=== PATIENT | male | born 1945 | race Caucasian/White ===

== ENCOUNTER 2018-01-10 13:43 | Day surgery (SDC) | payer OTHER ==
[2018-01-10 15:04] VITALS: BP 150/100
[2018-01-10] MEDS ORDERED: LACTATED RINGERS 1,000 ML IV ONE (15:20)
--- NOTE | 2018-01-10 15:50 | ANESTHESIA ---
Pre-Anesthesia VS, & Labs - Diagnosis history of polyps - Procedure colonoscopy Vital Signs: Temp Pulse Resp BP Pulse Ox 36.8 C 61 18 150/100 H 97 01/10/18 15:02 01/10/18 15:02 01/10/18 15:02 01/10/18 15:02 01/10/18 15:02 Height 5 ft 7 in Weight (kg) 87 kg - NPO >8 hours - Lab Results Lab results reviewed: Yes Home Medications and Allergies Home Medications: Ambulatory Orders Medication Instructions Recorded Confirmed Acyclovir 400 mg PO PRN 01/10/18 Alfuzosin HCl [Alfuzosin HCl ER] 10 mg PO 01/10/18 Atorvastatin Calcium 40 mg PO 01/10/18 Finasteride 5 mg PO 01/10/18 Ketotifen Fumarate 5 ml OP 01/10/18 Acyclovir 400 mg PO PRN 01/10/18 Alfuzosin HCl [Alfuzosin HCl ER] 10 mg PO 01/10/18 Atorvastatin Calcium 40 mg PO 01/10/18 Finasteride 5 mg PO 01/10/18 Ketotifen Fumarate 5 ml OP 01/10/18 Allergies/Adverse Reactions: Allergies Allergy/AdvReac Type Severity Reaction Status Date / Time No Known Drug Allergies Allergy Verified 10/01/12 01:58 Anes History & Medical History - Anesthetic History Anesthesia Complications: reports: No previous complications Family history of Anesthesia Complications: Denies Family history of Malignant Hyperthermia: Denies - Medical History Cardiovascular: reports: Hypertension, Atrial fibrillation Pulmonary: reports: None Gastrointestinal: reports: None Urinary: reports: Benign prostate hypertrophy, Retention Musculoskeletal: reports: None Endocrine/Autoimmune: reports: Type 2 diabetes, Other (leukemia) Skin: reports: None Smoking Status: Never smoker - Surgical History General: Colonoscopy Exam General: Alert, Oriented x3, Cooperative, No acute distress
== END 2018-01-10 13:44 | disposition home or self-care (01) ==
LOC: SDS 13:43
PROVIDERS: ATTEND Internal Medicine
DX: Z86.010 Personal history of colon polyps (principal); Z53.09 Procedure and treatment not carried out because of other contraindication

== ENCOUNTER 2021-03-23 04:12 | Outpatient (CLI) | payer OTHER | END 2021-03-23 04:13 | disposition critical access hospital (66) | LOC: EMS 04:12 | DX: R50.9 Fever, unspecified (principal); R53.1 Weakness; M79.89 Other specified soft tissue disorders | CPT/HCPCS: A0425; A0427 ==

== ENCOUNTER 2021-03-23 04:47 | Emergency (ER) | payer OTHER ==
[2021-03-23] MEDS ORDERED: ACETAMINOPHEN 325 MG TABLET PO STA (05:03)
[2021-03-23] MEDS ORDERED: SODIUM CHLORIDE 0.9% 1,000 ML IV STA ×2 (05:04→07:12)
[2021-03-23 05:13] LABS: BASOPHILS # (AUTO) 0.1 10^3/uL (0.0-0.1); BASOPHILS % (AUTO) 0.7 %; EOSINOPHILS # (AUTO) 0.1 10^3/uL (0.0-0.7); EOSINOPHILS % (AUTO) 0.9 %; HCT - HEMATOCRIT 42.4 % (42.0-52.0); HGB - HEMOGLOBIN 13.7 g/dL (14.0-18.0); LYMPHOCYTES # (AUTO) 1.1 10^3/uL (1.5-3.5); LYMPHOCYTES % (AUTO) 13.1 %; MEAN CORPUSCULAR HGB CONC 32.3 g/dL (32.0-36.0); MEAN CORPUSCULAR VOLUME 92.8 fL (80.0-94.0); MEAN PLATELET VOLUME 11.9 fL (7.4-11.4); MONOCYTES # (AUTO) 0.7 10^3/uL (0.0-1.0); MONOCYTES % (AUTO) 8.3 %; NEUTROPHILS # (AUTO) 6.6 10^3/uL (1.5-6.6); NEUTROPHILS % (AUTO) 75.7 %; PLT - PLATELET COUNT 76 10^3/uL (130-450); RED BLOOD COUNT 4.57 10^6/uL (4.70-6.10); RED CELL DISTRIBUTION WIDTH 13.6 % (12.0-15.0); WHITE BLOOD COUNT 8.7 x10^3/uL (4.8-10.8)
[2021-03-23 05:20] LABS: ALBUMIN 3.8 g/dL (3.2-5.5); ALBUMIN/GLOBULIN RATIO 1.5 (1.0-2.2); BILIRUBIN,TOTAL 1.3 mg/dL (0.2-1.0); CALCIUM 8.5 mg/dL (8.5-10.3); CREATININE 1.2 mg/dL (0.6-1.2); POTASSIUM 3.4 mmol/L (3.5-5.0); TOTAL PROTEIN 6.4 g/dL (6.7-8.2)
[2021-03-23] MEDS ORDERED: IBUPROFEN 800 MG TABLET PO STA (05:21)
--- NOTE | 2021-03-23 05:24 | ED Physician Documentation ---
History of Present Illness - Stated complaint Stated Complaint: LEG SWELLING/FEVER - Chief complaint Chief Complaint: Fever - History obtained from History obtained from: Patient, EMS - Additonal information Additional information: Patient is brought to the emergency department by EMS for chief complaint of fever, lower extremity weakness, and general malaise for the last couple of days. The patient has a history of leukemia and has been on an oral agent since 2015 for this. He is followed at [facility], where his oncologist is. He states that he has not had any other specific symptoms. No cough or shortness of breath. No chest pain. No abdominal pain, nausea, or diarrhea. No rash. The patient has a history of a DVT back in 2015 on the left side but states that his right Lower leg has been somewhat red and painful. Both legs are edematous and have been enlarged fairly symmetrically. Medics report that daughter reported the patient is confused. No other complaints at this time. Review of Systems Ten Systems: 10 systems reviewed and negative Constitutional: reports: Fever, Fatigue Eyes: reports: Reviewed and negative Ears: reports: Reviewed and negative Nose: reports: Reviewed and negative. denies: Rhinorrhea / runny nose Throat: reports: Reviewed and negative Cardiac: reports: Reviewed and negative Respiratory: reports: Reviewed and negative. denies: Cough GI: reports: Reviewed and negative : reports: Reviewed and negative Skin: reports: Other (Erythema right leg) Musculoskeletal: reports: Extremity pain, Extremity swelling Neurologic: reports: Reviewed and negative Psychiatric: reports: Reviewed and negative Endocrine: reports: Reviewed and negative Immunocompromised: reports: Reviewed and negative PD PAST MEDICAL HISTORY - Past Medical History Past Medical History: Yes Cardiovascular: Hypertension, Atrial fibrillation Respiratory: None Endocrine/Autoimmune: Type 2 diabetes GI: None : Benign prostate hypertrophy, Retention HEENT: None Psych: None Musculoskeletal: None Derm: None Other Past Medical History: Leukemia - Past Surgical History Past Surgical History: Yes General: Colonoscopy - Present Medications Home Medications: Ambulatory Orders Medication Instructions Recorded Confirmed Acyclovir 400 mg PO PRN 01/10/18 Alfuzosin HCl [Alfuzosin HCl ER] 10 mg PO 01/10/18 Atorvastatin Calcium 40 mg PO 01/10/18 Finasteride 5 mg PO 01/10/18 Ketotifen Fumarate 5 ml OP 01/10/18 - Allergies Allergies/Adverse Reactions: Allergies Allergy/AdvReac Type Severity Reaction Status Date / Time No Known Drug Allergies Allergy Verified 03/23/21 05:02 - Social History Does the pt smoke?: No Smoking Status: Never smoker Does the pt drink ETOH?: No Does the pt have substance abuse?: No - Immunizations Immunizations are current?: Yes - POLST Patient has POLST: No PD ED PE NORMAL - Vitals Vital signs reviewed: Yes - General General: Alert and oriented X 3, No acute distress, Well developed/nourished - HEENT HEENT: Atraumatic, PERRL, EOMI, Moist mucous membranes - Neck Neck: Supple, no meningeal sign - Cardiac Cardiac: RRR, No murmur, Strong equal pulses - Respiratory Respiratory: No respiratory distress, Clear bilaterally - Abdomen Abdomen: Soft, Non tender, Non distended - Derm Derm: Warm and dry, No rash, Other (Erythema along the medial aspect of the right lower leg at with associated superficial tenderness to palpation) - Extremities Extremities: No deformity, Other (SEBASTIAN bilateral lower extremities, symmetrical. Mild calf tenderness bilaterally chelle did) - Neuro Neuro: Other (The patient is alert and answers questions appropriately. No focal weakness, but he is not able to hold himself up in the sitting position for very long during the lung exam before he begins to slowly slump backwards.) - Psych Psych: Normal mood, Normal affect Results - Vitals Vitals: Vital Signs - 24 hr 03/23/21 03/23/21 03/23/21 09:30 10:00 10:30 Heart Rate 76 74 75 Respiratory 18 16 14 Rate Blood Pressure 101/50 L 90/55 L 99/60 O2 Saturation 99 95 96 03/23/21 11:00 Heart Rate 76 Respiratory 16 Rate Blood Pressure 95/62 O2 Saturation 98 Oxygen O2 Source Nasal cannula Oxygen Flow Rate 3 - Labs Labs: Microbiology 03/23/21 07:10 Blood Culture - Preliminary Blood - Left Hand NO GROWTH AFTER 1 DAY 03/23/21 04:54 Blood Culture - Preliminary Blood NO GROWTH AFTER 1 DAY Laboratory Tests 03/23/21 03/23/21 03/23/21 04:54 04:54 04:54 WBC 8.7 RBC 4.57 L Hgb 13.7 L Hct 42.4 MCV 92.8 MCH 30.0 MCHC 32.3 RDW 13.6 Plt Count 76 L MPV 11.9 H Neut # (Auto) 6.6 Lymph # (Auto) 1.1 L [place] # (Auto) 0.7 Eos # (Auto) 0.1 Baso # (Auto) 0.1 Absolute Nucleated RBC 0.00 Nucleated RBC % 0.0 Sodium 135 Potassium 3.4 L Chloride 98 L Carbon Dioxide 26 Anion Gap 11.0 BUN 14 Creatinine 1.2 Estimated GFR (MDRD) 59 L Glucose 148 H Lactic Acid 1.2 Calcium 8.5 Total Bilirubin 1.3 H AST 17 ALT 13 Alkaline Phosphatase 58 Total Protein 6.4 L Albumin 3.8 Globulin 2.6 Albumin/Globulin Ratio 1.5 Lipase 56 H Urine Color Urine Clarity Urine pH Ur Specific [place] Urine Protein Urine Glucose (UA) Urine Ketones Urine Occult Blood Urine Nitrite Urine Bilirubin Urine Urobilinogen Ur Leukocyte Esterase Urine RBC Urine WBC Ur Squamous Epith Cells Urine Bacteria Ur Microscopic Review Urine Culture Comments Nasal Adenovirus (PCR) Nasal B. parapertussis DNA (PCR) Nasal Coronavir 229E PCR Nasal Coronavir HKU1 PCR Nasal Coronavir NL63 PCR Nasal Coronavir OC43 PCR Nasal Enterovir/Rhinovir PCR Nasal Influenza B PCR Nasal Influenza A PCR Nasal Parainfluen 1 PCR Nasal Parainfluen 2 PCR Nasal Parainfluen 3 PCR Nasal Parainfluen 4 PCR Nasal RSV (PCR) Nasal B.pertussis DNA PCR Nasal C.pneumoniae (PCR) Gary Human Metapneumo PCR Nasal M.pneumoniae (PCR) Nasal SARS-CoV-2 (PCR) 03/23/21 03/23/21 05:00 07:12 WBC RBC Hgb Hct MCV MCH MCHC RDW Plt Count MPV Neut # (Auto) Lymph # (Auto) [place] # (Auto) Eos # (Auto) Baso # (Auto) Absolute Nucleated RBC Nucleated RBC % Sodium Potassium Chloride Carbon Dioxide Anion Gap BUN Creatinine Estimated GFR (MDRD) Glucose Lactic Acid Calcium Total Bilirubin AST ALT Alkaline Phosphatase Total Protein Albumin Globulin Albumin/Globulin Ratio Lipase Urine Color YELLOW Urine Clarity CLEAR Urine pH 6.0 Ur Specific [place] 1.015 Urine Protein NEGATIVE Urine Glucose (UA) NEGATIVE Urine Ketones NEGATIVE Urine Occult Blood SMALL H Urine Nitrite NEGATIVE Urine Bilirubin NEGATIVE Urine Urobilinogen 0.2 (NORMAL) Ur Leukocyte Esterase NEGATIVE Urine RBC 0-5 Urine WBC 0-3 Ur Squamous Epith Cells NONE SEEN Urine Bacteria None Seen Ur Microscopic Review INDICATED Urine Culture Comments NOT INDICATED Nasal Adenovirus (PCR) NOT DETECTED Nasal B. parapertussis DNA (PCR) NOT DETECTED Nasal Coronavir 229E PCR NOT DETECTED Nasal Coronavir HKU1 PCR NOT DETECTED Nasal Coronavir NL63 PCR NOT DETECTED Nasal Coronavir OC43 PCR NOT DETECTED Nasal Enterovir/Rhinovir PCR NOT DETECTED Nasal Influenza B PCR NOT DETECTED Nasal Influenza A PCR NOT DETECTED Nasal Parainfluen 1 PCR NOT DETECTED Nasal Parainfluen 2 PCR NOT DETECTED Nasal Parainfluen 3 PCR NOT DETECTED Nasal Parainfluen 4 PCR NOT DETECTED Nasal RSV (PCR) NOT DETECTED Nasal B.pertussis DNA PCR NOT DETECTED Nasal C.pneumoniae (PCR) NOT DETECTED Gary Human Metapneumo PCR NOT DETECTED Nasal M.pneumoniae (PCR) NOT DETECTED Nasal SARS-CoV-2 (PCR) NOT DETECTED - Rads (name of study) US RLE Radiology: Final report received, EMP read indepedently, See rad report (No DVT) CXR Radiology: Final report received, EMP read indepedently, See rad report (No acute disease) PD MEDICAL DECISION MAKING - ED course Complexity details: reviewed results, re-evaluated patient, considered differential, d/w patient ED course: The patient had been quite febrile at home up to 102, but was found to be 100.3 here on my personal check of an oral temperature during my exam. He was mildly tachycardic in keeping with the fever. He was given IV fluids and Tylenol plus ibuprofen. He was worked up broadly with chest x-ray, lab work including blood cultures and lactic acid level, urinalysis, respiratory PCR, and ultrasound of the right lower extremity. Lactate and white blood cell count's were both normal. Urinalysis was pending at the time of dictation. Respiratory PCR and chest x-ray were negative. Ultrasound did not show DVT. Given the complaint of right leg weakness, even though on exam the weakness did not seem to be more than on the left side, I did go ahead and order a CT scan of the head. This is pending at this time, along with urinalysis. The patient is signed out to Dr. Tomas Conklin, pending these results and final disposition. Departure - Departure Disposition: 02 Transfer Acute Care Hosp Clinical Impression: Leg weakness, Intracranial hemorrhage, Subjective fever Condition: Stable Discharge Date/Time: 03/23/21 11:17
[2021-03-23 06:04] LABS: B. PARAPERTUSSIS- RESP PCR PAN NOT DETECTED; B. PERTUSSIS- RESP PCR PANEL NOT DETECTED; C. PNEUMONIAE- RESP PCR PANEL NOT DETECTED; CORONAVIRUS 229E-RESP PCR NOT DETECTED; CORONAVIRUS HKU1-RESP PCR NOT DETECTED; CORONAVIRUS NL63-RESP PCR NOT DETECTED; CORONAVIRUS OC43-RESP PCR NOT DETECTED; HUMAN METAPNEUMOVIRUS NOT DETECTED; INFLUENZA A- RESP PCR PANEL NOT DETECTED; INFLUENZA B - RESP PCR PANEL NOT DETECTED; M. PNEUMONIAE- RESP PCR PANEL NOT DETECTED; PARAINFLUENZA VIRUS 1 NOT DETECTED; PARAINFLUENZA VIRUS 2 NOT DETECTED; PARAINFLUENZA VIRUS 3 NOT DETECTED; PARAINFLUENZA VIRUS 4 NOT DETECTED; RHINOVIRUS/ENTEROVIRUS NOT DETECTED; RSV- RESP PCR PANEL NOT DETECTED; SARS-CoV-2 -RESP PCR PANEL NOT DETECTED
[2021-03-23] MEDS ORDERED: IOVERSOL 320 100 ML VIAL IVP ONE ×2 (07:21→07:50)
[2021-03-23 07:22] LABS: BILIRUBIN,URINE NEGATIVE (NEGATIVE); GLUCOSE, URINE (UA) NEGATIVE (NEGATIVE); KETONES,URINE (UA) NEGATIVE (NEGATIVE); LEUKOCYTE ESTERASE, URINE NEGATIVE (NEGATIVE); NITRITE,URINE NEGATIVE (NEGATIVE); OCCULT BLOOD,URINE SMALL (NEGATIVE); PROTEIN,URINE NEGATIVE (NEGATIVE); UROBILINOGEN,URINE 0.2 (NORMAL) E.U./dL (NORMAL)
[2021-03-23 07:40] LABS: CLARITY,URINE CLEAR (CLEAR)
[2021-03-23 07:42] LABS: BACTERIA,URINE None Seen /HPF (None Seen); RBC,URINE 0-5 /HPF (0-5); SQUAMOUS EPITHELIAL CELL,UR NONE SEEN (<= Few); WBC,URINE 0-3 /HPF (0-3)
--- NOTE | 2021-03-23 07:47 | Ultrasound Report ---
PROCEDURE: Duplex Ext Veins Right INDICATIONS: fever, swelling RLE, cancer TECHNIQUE: Real-time imaging, as well as color and pulse Doppler interrogation, were performed of the lower extr emity deep veins from the inguinal ligament to the popliteal fossa. COMPARISON: None. FINDINGS: The deep veins are normally compressible, and free of intraluminal thrombus. Color and pu lse Doppler demonstrate normal phasic intraluminal flow. There is normal augmentation response to di stal compression maneuver. Diffuse nonspecific soft tissue edema noted in the right calf. IMPRESSION: No evidence of deep thrombosis involving the right lower extremity. Reviewed by: Nathalie Dias MD, PhD on 03/23/2021 7:46 AM PST Approved by: Nathalie Dias MD, PhD on 03/23/2021 7:46 AM PST Station ID: [id number]
--- NOTE | 2021-03-23 08:15 | CT Report ---
PROCEDURE: HEAD WO INDICATIONS: R leg weakness TECHNIQUE: Noncontrast 4.5 mm thick angled axial sections acquired from the foramen magnum to the vertex. For r adiation dose reduction, the following was used: automated exposure control, adjustment of mA and/or kV according to patient size. COMPARISON: None. FINDINGS: Image quality: Excellent. CSF spaces: Basal cisterns are patent. No extra-axial fluid collections. There is mild cerebral vol ume loss. Prominence of the ventricles and sulci. Brain: There is an indistinct region of intraparenchymal hemorrhage within the left colby radiata m easuring up to approximately 0.7 cm in dimension. No associated mass effect. No midline shift. There is a focal hypodensity within the right colby radiata suggestive of a small lacunar infarct of inde terminate acuity. There is also an indistinct hypodensity within the left caudate head compatible wit h a prior lacunar infarct of indeterminate acuity. Elsewhere, there are indistinct areas of subcortic al and periventricular white matter hypodensity consistent with mild chronic white matter small vesse l ischemic changes. Dum[place]-white matter interface otherwise appears preserved. Skull and face: Calvarium and visualized facial bones are intact, without suspicious lesions. Sinuses: Visualized sinuses and mastoids are clear. IMPRESSION: 1. Small indistinct intraparenchymal hemorrhage within the left colby radiata. 2. Small focal hypodensities within the left caudate head and right colby radiata compatible with sm all lacunar infarcts of indeterminate acuity. 3. Mild chronic white matter small vessel ischemic changes and cerebral volume loss. Concordant with preliminary report from [facility] services discussed with Dr. Conklin on at 7:09 AM. Reviewed by: Corey Can MD on 03/23/2021 8:13 AM PST Approved by: Corey Can MD on 03/23/2021 8:13 AM PST Station ID: [id number]
--- NOTE | 2021-03-23 08:23 | CT Report ---
PROCEDURE: ANGIO HEAD W/WO INDICATIONS: L sided facial droop CONTRAST: IV CONTRAST: Optiray 320 ml: 80 PO CONTRAST: *NO PO CONTRAST TECHNIQUE: After the administration of intravenous contrast, 1 mm thick sections acquired through the [place]. Postcontrast 4.5 mm thick sections then re-acquired from the foramen magnum to the vertex. 3-dimensional kjrgyec-[id number]-invmpanqio (MIP) and/or volume rendering reformats were acquired of t he central intracranial vasculature. For radiation dose reduction, the following was used: automate d exposure control, adjustment of mA and/or kV according to patient size. COMPARISON: Head CT 03/23/2021 FINDINGS: Image quality: There is mild motion and beam hardening artifact. Anterior circulation: Visualized segments of the intracranial internal carotid arteries are normal in size and appear patent. The paired anterior cerebral arteries appear patent. The middle cerebral ar teries appear patent bilaterally. The anterior communicating artery is patent. No high-grade stenosis , occlusion, or discrete filling defects. No cerebral aneurysms identified. Posterior circulation: Visualized portions of the vertebral arteries demonstrate normal caliber, and join to form a normal appearing basilar artery. Flow within the posterior cerebral arteries is norm al and symmetric. No aneurysms are seen. CSF spaces: There is mild cerebral volume loss with prominence of the ventricles and sulci. Basal cis terns are patent. No extra-axial fluid collections. Brain: There is an indistinct small frontal left periventricular intraparenchymal hematoma within th e left coronal radiata measuring up to approximately 0.7 cm. There is mild associated vasogenic edema . No midline shift. No definite associated underlying mass identified. No definite abnormal intracran ial enhancement. There are focal hypodensities in the right coronal radiata and left caudate head com patible with small lacunar infarct of indeterminate acuity. Indistinct subcortical and periventricula r white matter hypodensities are also demonstrated consistent with mild chronic small vessel ischemic changes. Skull and face: Calvarium and facial bones appear intact, without suspicious lesions. Sinuses: Visualized sinuses and mastoids are clear. IMPRESSION: 1. Small indistinct intraparenchymal hematoma within the left colby radiata. No definite underlying enhancing mass identified. The findings are suggestive of a hypertensive hemorrhage. 2. No high-grade stenosis or occlusion of the central intracranial arteries. No cerebral aneurysm mamadou ntified. 3. Mild chronic white matter small vessel ischemic changes and cerebral volume loss. 4. Focal hypodensities in the right colby radiata and left caudate head are suggestive of small acut e infarcts of indeterminate acuity. Reviewed by: Corey Can MD on 03/23/2021 8:22 AM PST Approved by: Corey Can MD on 03/23/2021 8:22 AM [facility] Station ID: [id number]
--- NOTE | 2021-03-23 08:35 | XRAY Report ---
PROCEDURE: Chest 1 View X-Ray INDICATIONS: chest pain TECHNIQUE: One view of the chest was acquired. COMPARISON: None. FINDINGS: Surgical changes and devices: None. Lungs and pleura: There are linear opacities in the lung bases, left greater than right, likely repr esenting atelectasis. Mild blunting of the left costophrenic angle is suggestive of a small left pleu ral effusion. The medial lung apices are partially obscured by patient's neck soft tissues. No defini te pneumothorax. Mediastinum: Mediastinal contours appear normal. Heart size is normal. Bones and chest wall: No suspicious bony lesions. Overlying soft tissues appear unremarkable. IMPRESSION: 1. Probable atelectasis in the lung bases with a possible small left pleural effusion. Reviewed by: Corey Can MD on 03/23/2021 8:34 AM PST Approved by: Corey Can MD on 03/23/2021 8:34 AM [facility] Station ID: [id number]
--- NOTE | 2021-03-23 08:45 | ED Physician Documentation ---
ED Addendum - Addendum Addendum: 03/23/21 08:43The patient remains awake and conversant on my initial exam. His initial CT of the head was showing a 1 cm intracranial hemorrhage in the region of the left internal capsule. Age-indeterminate lacunar infarct in the right lentiform nucleus. On my exam he has some drift of the right leg with lifting. General weakness of both legs for lifting and edema of both. Mild redness on the right lower leg compared to the left with some tenderness so consideration of some cellulitic changes. Neuro exam otherwise nonfocal. CTA of the head is ordered to look for underlying tumors or aneurysms or such. This comes back showing similar findings on the CT with the small local hemorrhage and other area of indeterminate age small infarction. No obvious aneurysms masses or tumors. At this point I presume he will need neurology or neurosurgical input regarding the findings. We will assess for other hospital capabilities for transfer. He is not on any blood thinners. 03/23/21 16:12 Contact was made with [facility] and I talked with Dr. Samy diez for neurology and then Dr. Andres neuro ICU. Review of the patient's presentation and CT findings was done. They did feel the patient should be transferred to them for observation to evaluate for repeat bleeding and neuro status. EMTALA forms were filled out and the patient was transported by ground EMS as he appeared stable with good neuro exam at this time. No obvious source of infection is found so unclear about the subjective feeling of chills nor the EMS report of fever on their initial exam. Afebrile here in no obvious source of infection. Disposition the patient is transferred to [facility] in stable condition. Diagnoses: 1. Acute right leg weakness 2. 1 cm intraparenchymal brain bleed 3. Reported fever
[2021-03-23 11:17] VITALS: BP 95/62
== END 2021-03-23 11:17 | disposition short-term general hospital (02) ==
LOC: EDUNIT# → ED 04:47
DX: I62.9 Nontraumatic intracranial hemorrhage, unspecified (principal); M62.81 Muscle weakness (generalized); R50.9 Fever, unspecified; R00.0 Tachycardia, unspecified; I48.91 Unspecified atrial fibrillation; I10 Essential (primary) hypertension; E11.9 Type 2 diabetes mellitus without complications; Z20.822 Contact with and (suspected) exposure to COVID-19; Z86.718 Personal history of other venous thrombosis and embolism
CPT/HCPCS: 0202U; 36415; 51702; 70450; 70496; 71045; 80053; 81001; 83605; 83690; 85025; 87040; 93971; 99285; A9270; Q9967; 81003; 87086

== ENCOUNTER 2021-03-23 11:16 | Outpatient (CLI) | payer OTHER | END 2021-03-23 11:17 | disposition short-term general hospital (02) | LOC: EMS 11:16 | PROVIDERS: ATTEND Emergency Medicine | DX: I62.9 Nontraumatic intracranial hemorrhage, unspecified (principal) | CPT/HCPCS: A0425; A0428 ==

== ENCOUNTER 2021-03-29 08:37 | Emergency (ER) | payer OTHER ==
[2021-03-29 09:00] VITALS: BP 141/79
--- NOTE | 2021-03-29 09:23 | ED Physician Documentation ---
History of Present Illness - Stated complaint Stated Complaint: CATH ISSUES - Chief complaint Chief Complaint: General - History obtained from History obtained from: Patient - Additonal information Additional information: Patient comes emergency department chief complaint of Saucedo catheter issues. He states that he was just admitted to the hospital at [facility] after being found to have a cerebral hemorrhage here. While he was in the hospital, he states he developed urinary retention, so Saucedo catheter was placed. Patient states that he was sent home on the Saucedo, but he feels that the tube was too short and it kept pulling. Patient was trying to adjust it yesterday when he accidentally pulled hard on it, and felt a "pop". States he had some moderate pain, was not able to void through the catheter and did not have any urine output overnight. He was quite uncomfortable this morning, and decided come to the emergency department, but on the way here, he began to have drainage from his catheter. He has now put out 800 cc of urine, but he has noticed it is blood-tinged. The patient states mainly, he just wants the catheter taken out, because this is happened to him many times before where he has had urinary retention, secondary to his prostatic hypertrophy, and has had to have a Saucedo catheter temporarily. Patient states he thinks he could urinate without the catheter, now that it has been in for a couple of days, and he would like to try without. No fevers or chills. No new weakness. No other complaints at this time. Review of Systems Ten Systems: 10 systems reviewed and negative Constitutional: reports: Reviewed and negative Eyes: reports: Reviewed and negative Ears: reports: Reviewed and negative Nose: reports: Reviewed and negative Throat: reports: Reviewed and negative Cardiac: reports: Reviewed and negative Respiratory: reports: Reviewed and negative GI: reports: Reviewed and negative : reports: Unable to Void, Hematuria, Saucedo Problem Skin: reports: Reviewed and negative Musculoskeletal: reports: Reviewed and negative Neurologic: reports: Reviewed and negative Psychiatric: reports: Reviewed and negative Endocrine: reports: Reviewed and negative Immunocompromised: reports: Reviewed and negative PD PAST MEDICAL HISTORY - Past Medical History Cardiovascular: Hypertension, Atrial fibrillation Respiratory: None Endocrine/Autoimmune: Type 2 diabetes GI: None : Benign prostate hypertrophy, Retention HEENT: None Psych: None Musculoskeletal: None Derm: None - Past Surgical History Past Surgical History: Yes General: Colonoscopy - Present Medications Home Medications: Ambulatory Orders Medication Instructions Recorded Confirmed Acyclovir 400 mg PO PRN 01/10/18 Alfuzosin HCl [Alfuzosin HCl ER] 10 mg PO 01/10/18 Atorvastatin Calcium 40 mg PO 01/10/18 Finasteride 5 mg PO 01/10/18 Ketotifen Fumarate 5 ml OP 01/10/18 - Allergies Allergies/Adverse Reactions: Allergies Allergy/AdvReac Type Severity Reaction Status Date / Time No Known Drug Allergies Allergy Verified 03/29/21 08:56 - Social History Does the pt smoke?: No Smoking Status: Never smoker Does the pt drink ETOH?: No Does the pt have substance abuse?: No - Immunizations Immunizations are current?: Yes - POLST Patient has POLST: No PD ED PE NORMAL - Vitals Vital signs reviewed: Yes - General General: Alert and oriented X 3, No acute distress, Well developed/nourished - HEENT HEENT: Atraumatic, PERRL, EOMI, Moist mucous membranes - Neck Neck: Supple, no meningeal sign - Respiratory Respiratory: No respiratory distress - Abdomen Abdomen: Soft, Non distended - Male Male : Other (Catheter in place with active drainage. Mildly blood-tinged urine, with 800 cc in Saucedo bag.) - Derm Derm: Warm and dry - Extremities Extremities: No deformity - Neuro Neuro: Alert and oriented X 3 - Psych Psych: Normal mood, Normal affect Results - Vitals Vitals: Vital Signs - 24 hr 03/29/21 08:48 Temperature 36.0 C L Heart Rate 76 Respiratory 16 Rate Blood Pressure 141/79 H O2 Saturation 99 Oxygen O2 Source Nasal cannula PD MEDICAL DECISION MAKING - ED course Complexity details: considered differential, d/w patient ED course: At the patient's request, the Saucedo was removed. I have discussed with the patient that he will have to see how it goes today and see if he is able to urinate on his own. If not, we can put the catheter back and if he returns to the emergency department, but if this ends up being the case, then the patient will need to follow-up with urology for evaluation before having it discontinued. Patient is otherwise doing well and stable for discharge home Departure - Departure Disposition: 01 Home, Self Care Clinical Impression: Saucedo catheter problem Qualifiers: Encounter type: initial encounter Qualified Code(s): T83.9XXA - Unspecified complication of genitourinary prosthetic device, implant and graft, initial encounter Condition: Stable Instructions: ED Retention Urinary Male Comments: At your request, the catheter has been removed today. As you have done before, you will need to find the best position to help yourself urinate and you should also try to urinate sooner rather than waiting till your bladder is very full, as this can sometimes increase your chances of urinary retention. If you cannot urinate by the end of the day, despite drinking plenty of fluids, then you will need to return to the emergency department and have the catheter replaced.
== END 2021-03-29 09:33 | disposition home or self-care (01) ==
LOC: ED 08:37
DX: T83.9XXA Unspecified complication of genitourinary prosthetic device, implant and graft, initial encounter (principal); R33.8 Other retention of urine; I10 Essential (primary) hypertension; I48.91 Unspecified atrial fibrillation; E11.9 Type 2 diabetes mellitus without complications; N40.1 Benign prostatic hyperplasia with lower urinary tract symptoms
CPT/HCPCS: 99281; 99282

== ENCOUNTER 2021-05-25 08:00 | Outpatient (CLI) | payer OTHER ==
--- NOTE | 2021-05-25 09:55 | XRAY Report ---
PROCEDURE: Tib/Fib RT INDICATIONS: RIGHT LEG PAIN TECHNIQUE: 2 views of the tibia and fibula were acquired. COMPARISON: None. FINDINGS: Bones: No fractures or dislocations. Osteoarthritic changes in right knee and the right ankle joints are seen. No suspicious bony lesions. Soft tissues: No suspicious soft tissue calcifications or masses. IMPRESSION: No right lower leg fracture or dislocation. Right ankle and right knee joint osteoarthritis. No suspi cious bony lesion. No gross soft tissue abnormality. Reviewed by: Dennis Glover MD on 05/25/2021 9:54 AM PST Approved by: Dennis Glover MD on 05/25/2021 9:54 AM PST Station ID: [id number]
== END 2021-05-25 23:59 | disposition home or self-care (01) ==
LOC: DI.S 08:00 → MERGE 09:05 → DI.S 23:59
PROVIDERS: ATTEND Physician Assistant
DX: L03.115 Cellulitis of right lower limb (principal); M19.071 Primary osteoarthritis, right ankle and foot; M17.11 Unilateral primary osteoarthritis, right knee

== ENCOUNTER 2021-06-29 11:17 | Outpatient (CLI) | payer OTHER ==
[2021-06-29 12:09] VITALS: BP 132/73
--- NOTE | 2021-06-29 12:09 | SLEEP CARE CONSULTATION ---
Information from patient questionnaire entered by America Henry MA. I have reviewed and concur with the information entered by America Henry MA. This document represents the service I personally performed and the decisions made by , Divya Delatorre ARNP. History of Present Illness Service Date and Time: 06/29/2021 1117 Reason for Visit: New patient (ONSET 04/2021, NO PRIORS,) Chief Complaint: reports: Unrefreshed sleep, Excessive daytime sleepiness, Fatig ue, Frequent awakenings at night Date of Onset: unknown Usual bedtime: 11 PM Time it takes to fall asleep: no time Snores at night: No Observed to quit breathing while asleep: No Sleeps alone due to snoring: No (single) Number of times waking at night: 1 Reasons for waking at night: reports: Bathroom Toss, Turn, or Twitch while sleeping: No Recalls having dreams: Yes Usually gets out of bed at: 0400 or earlier Feels refreshed in the morning: No Morning headache: No Sleepy or fatigued during the day: Yes (at times) Ever fallen asleep while driving: Yes Takes day naps: Yes Dreams during day naps: No Prior sleep studies: No Additional HPI information: I had the pleasure of seeing ASIA DACOSTA today regarding the possibility of him having a sleep disorder. His current complaints are excessive daytime sleepiness, fatigue, frequent night awakenings, and unrefreshed sleep. He states he can snore if he sleeps on his back but normally does not snore. He had a stroke in February 2021 and was told that his oxygen saturation would decrease while he slept when in the hospital. They did not say he snored or had any p auses in breathing. The patient tells me that he normally goes to bed around 10-11 pm, and it takes him approximately couple minutes to fall asleep. He has not been told that he snores loudly and irregularly at night. He has not been observed to stop breathing in his sleep. He can recall waking up on the average of 1 time during the night. Most of the time he wakes up because of needing the bathroom. He has not awakened for his own snoring, choking, and having to gasp for air. There is not a lot of tossing and turning in his sleep. Generally he can recall having dreams. He usually wakes up at 0530 and does not feel refreshed. He usually does not have a morning headache. During the day he complains of feeling sleepy and fatigued. He has fallen asleep while driving and has gone out of the tamie, no accident. He usually naps for about 60 minutes during the day. If he naps, upon falling asleep during the day he denies having vivid dreams. There is no somniloquy (sleep talking) or somnambulism (sleep walking). He has never experienced sleep paralysis, cataplexy, or symptoms of restless leg syndrome. He does have sore muscles and leg cramping. He reports having impaired concentration during the day. - Parasomnia Symptoms Ever been unable to move upon waking from sleep: No Walks in sleep: No Talks in sleep: No Ever acted out dreams in sleep: No Ever felt weak in the knees when startled or emotional: No Bothered by creepy, crawly, restless sensations in legs: Yes (sometimes has leg spasms) Problems with memory or concentration: Yes (some) Subjective Initial [place] Sleepiness Scale score: 12 (2021) Past Medical History Past Medical History: reports: Hypertension, Diabetes, Stroke (Feb 2021), Arrythmia (Atrial fibrillation), Other (Leukemia (on medication), a fib, high blood pressure, enlarged prostate) Social History The patient's occupation is a RETIRED. Patient is and lives in [place]. Have you smoked in the past 12 months: No Cigarettes per day (20/pack): 20 Years of smokin Quit date: 30 years ago Smoking Pack Years: 15.0 Alcohol use: No Caffeine use: Yes Caffeine amount and frequency: 2-6 cups every day Family History Family history of sleep disordered breathing: Yes Family Hx Sleep Apnea: Sibling: Sleep apnea - Treated Allergies and Home Medications Drug allergies reviewed: Yes (NKDA) Home medication list reviewed: Yes Allergy and home medication list: Allergies No Known Drug Allergies Allergy (Verified 05/25/21 10:07) Medications: Atorvastatin Acyclovir Ibrutinib - cancer med Metoprolol Succinate Metformin HCL Alfuzosin HCL Furosemide Finasteride Review of Systems Weight loss over past 5 years: 10 lbs Cardiovascular: reports: high blood pressure, leg or foot swelling Urinary: reports: frequency Ear/Nose/Throat: reports: sinus problems, nose bleeds, tonsillectomy Musculoskeletal: reports: neck pain (sometimes), back pain (sometimes), muscle pain or cramping (in morning), mobility problems (balance issues) Physical Exam Vital signs obtained and entered by: CHRIS MARQUEZ Blood Pressure: 132/73 (RIGHT, PULSE 88, RESP 16, ) Cuff size: wrist Heart Rate: 85 O2 Saturation: 96 (N95) Height: 5 ft 6 in Weight: 184 lb Weight change since last visit: PT THINKS HE LOST FEW LBS Body Mass Index: 29.7 BMI Classification: Overweight Neck circumference: 15.5 (INCHES) Mouth and throat: narrow oropharynx Soft palate: long Hard palate: normal Uvula: normal Uvula visualization: 25% Mallampati Class III Tongue: normal in size Tonsils: absent bilaterally Neck: normal w/o lymphadenopathy or thyromegaly Heart: irregular rhythm Lungs: clear bilaterally Impression and Plan 1. Suspected Obstructive Sleep Apnea-Hypopnea Syndrome, as suggested by a history of irregular snoring, unrefreshed sleep, cognitive impairment, and excessive daytime sleepiness. Narrow oropharynx and obesity are common predisposing factors for obstructive sleep apnea-hypopnea syndrome. I recommend proceeding to polysomnography to confirm the diagnosis and to assess severity. If the patient has significant sleep disordered breathing, a manual CPAP titration study will also be performed to find the optimal treatment pressure. I informed the patient of what the sleep studies involve and after some discussion, obtained agreement to proceed. The pathophysiology of obstructive sleep apnea-hypopnea syndrome was discussed with the patient and health risks of cardiovascular and cerebrovascular disease if not treated. Risks of drowsy driving discussed in detail and patient advised to avoid long distance driving and to chute puller at the first sign of drowsiness. Patient agreed to plan. * Schedule polysomnography * Avoid long distance driving or driving when feeling sleepy. * Avoid alcohol, sedative and muscle relaxant around bedtime. * Attempt to lose weight. * Review instructions provided by trained office staff on how to prepare for the sleep study. * Return for follow-up after sleep study completed. Counseling Topics: Weight loss health impact Visit Type: In Office Time Spent with Patient (minutes): 42 Provider Statement: I spent 100% of the Face to Face Visit with the patient with greater than 50% spent counseling the patient and coordination of care.
== END 2021-06-29 11:18 | disposition home or self-care (01) ==
LOC: SC 11:17
PROVIDERS: ATTEND Nurse Practitioner Family
DX: G47.10 Hypersomnia, unspecified (principal); G47.8 Other sleep disorders; R41.89 Other symptoms and signs involving cognitive functions and awareness; R06.83 Snoring
CPT/HCPCS: 99203; 99212

== ENCOUNTER 2021-07-18 19:30 | Outpatient (CLI) | payer OTHER | END 2021-07-18 19:31 | disposition home or self-care (01) | LOC: SC 19:30 | PROVIDERS: ATTEND Nurse Practitioner Family | DX: G47.33 Obstructive sleep apnea (adult) (pediatric) (principal); I48.91 Unspecified atrial fibrillation | CPT/HCPCS: 95810 ==

== ENCOUNTER 2021-08-05 08:27 | Outpatient (CLI) | payer OTHER ==
[2021-08-05 09:09] VITALS: BP 118/76
--- NOTE | 2021-08-05 09:09 | SLEEP CARE CONSULTATION ---
Information from patient questionnaire entered by America Henry MA. I have reviewed and concur with the information entered by America Henry MA. This document represents the service I personally performed and the decisions made by , Divya Delatorre ARNP. History of Present Illness Service Date and Time: 08/05/2021 0827 Initial [place] Sleepiness Scale score: 12 (2021) Current [place] Sleepiness Scale score: 12 (08/13) Additional HPI information: ASIA DACOSTA returns via video telehealth visit for follow up and results of the recently performed polysomnography. I explained the pathophysiology behind obstructive sleep apnea. We then spent quite a bit of time discussing different treatment options. For mild obstructive sleep apnea, surgery and oral appliance are alternatives to nasal CPAP therapy but in moderate or severe cases, nasal CPAP is the most effective and reliable treatment. Because apnea is primarily in supine position, then positional management therapy could be effective. Methods discussed such as positioning with pillows to prevent supine sleep. I reviewed the impact of weight changes on sleep apnea and strongly recommended losing weight. After some discussion, the patient opted to go with the nasal CPAP therapy. Nasal autoCPAP set at 4-15 cmH20 will be ordered with rationale explained. A manual titration study will be ordered if unable to find optimal pressure with office adjustments. I explained how CPAP machine works and what to expect when using the machine. Using CPAP every night in order to get used to it was emphasized. Patient advised to put CPAP mask on before getting into bed so as not to fall asleep without CPAP. To assist acclimation to CPAP use, it could also be used for a short time during day while reading or watching TV. The patient was instructed to call the CPAP supplier to discuss any mechanical problem that may occur. If the mask given is uncomfortable or is difficult to keep on through the night even with adjustment, contact the CPAP supplier as many will replace with another mask style if notified before 30 days. If snoring or perceives is not getting enough air or too much air from the machine, notify this office. AASM patient education PAP tips reviewed and given to patient. Patient does not drink alcohol. Patient was cautioned about risks of drowsy driving until sleepiness symptoms resolve. Sleep Study - Results Type of Sleep Study: Polysomnography (F/U POLY, 07/18/21 [facility],) Prior sleep studies: No Polysomnography/Home Sleep Study results: IMPRESSION: The quality of the study is good. The patient had reduced sleep efficiency a prolonged awakening in the middle of the night. The sleep architecture was abnormal for sleep fragmentation and reduced amount of time spent in REM sleep. Respiratory monitoring showed severe obstructive sleep apnea-hypopnea (AHI = 39.4) associated with frequent arousals, oxyhemoglobin desaturation and moderate hypoxia (susan oxygen saturation of 67%). Baseline oxygen saturation normal. The respiratory events occurred independently of sleep stage and body position (supine AHI = 39.1; non-supine = 96.00). Snore was light in intensity. There was no significant periodic leg movement of sleep. Cardiac rhythm was atrial fibrillation. No abnormal behavior (parasomnia) observed during the night. Allergies and Home Medications Home medication list reviewed: Yes (no changes) Allergy and home medication list: Allergies No Known Drug Allergies Allergy (Verified 05/25/21 10:07) Review of Systems Review of systems same as previous: Yes (no changes) Physical Exam Vital signs obtained and entered by: CHRIS MARQUEZ Blood Pressure: 118/76 (RIGHT, PULSE 87, RESP 14, ) Cuff size: wrist Heart Rate: 91 O2 Saturation: 96 (CLOTH) Height: 5 ft 6 in Weight: 184 lb (PER PT DIDNT WANT TO WEIGHT) Body Mass Index: 29.7 BMI Classification: Overweight Impression and Plan 1. Obstructive Sleep Apnea-Hypopnea Syndrome, severe, with lowest oxygen saturation of 67%. Obviously this is the cause of the patients symptoms of unrefreshed sleep, and excessive daytime sleepiness. Positive pressure therapy could benefit hypertension, diabetes, cerebrovascular disease (stroke) and atrial fibrillation (arrhythmia). As mentioned above, the patient will be started on nasal autoCPAP therapy with pressure set at 4-15 cmH2O. A manual titration study will be completed if unable to find optimal treatment pressure with office adjustments. Compliance guidelines also reviewed. A copy of compliance guidelines will be given for reference at check out. 2. Hypoxemia, moderate, susan oxygen saturation of 67% with 21.5 minutes spent under 90%. His baseline oxygen saturation was normal at an average of 91%. 3. Atrial fibrillation. Patient has a known history of atrial fibrillation. Follow up as needed per his PCP or cardiology providers. * Nasal auto CPAP therapy, pressure at 4-15 cm H2O. * Attempt to lose weight. * Avoid alcohol consumption near bedtime. * Avoid non-supine sleep until using CPAP. * The patient is again cautioned about driving until sleepiness completely resolves. * Return one month after CPAP obtained. I will assess response to therapy and compliance at that time. Counseling Topics: Sleeping position, Weight loss health impact Visit Type: In Office Location of Provider: Office Time Spent with Patient (minutes): 24 Provider Statement: I spent 100% of the Face to Face Visit with the patient with greater than 50% spent counseling the patient and coordination of care.
== END 2021-08-05 08:28 | disposition home or self-care (01) ==
LOC: SC 08:27
PROVIDERS: ATTEND Nurse Practitioner Family
DX: G47.33 Obstructive sleep apnea (adult) (pediatric) (principal); R09.02 Hypoxemia; I48.91 Unspecified atrial fibrillation
CPT/HCPCS: 99212; 99213

== ENCOUNTER 2021-10-27 08:00 | Outpatient (CLI) | payer OTHER | END 2021-10-27 23:59 | disposition home or self-care (01) | LOC: LAB 08:00 | PROVIDERS: ATTEND Registered Nurse | DX: R39.11 Hesitancy of micturition (principal) | CPT/HCPCS: 87086 ==

== ENCOUNTER 2021-10-28 15:07 | Outpatient (CLI) | payer OTHER | END 2021-10-28 15:08 | disposition critical access hospital (66) | LOC: EMS 15:07 | DX: R53.1 Weakness (principal); M79.89 Other specified soft tissue disorders; R50.9 Fever, unspecified | CPT/HCPCS: A0425; A0429 ==

== ENCOUNTER 2021-10-28 15:43 | Inpatient (IN) | payer OTHER ==
[~2021-10-28 15:43] MED LIST: diltiaZEM INJ 125 MG in SODIUM CHLORIDE 0.9% 100ML 100 ML IV ONE
[2021-10-28] MEDS ORDERED: VANCOMYCIN INJ 2 GM in SODIUM CHLORIDE 0.9% 500 ML IV STA (15:47)
[2021-10-28] MEDS ORDERED: ceFAZolin 2 GM/50 ML 2 GM/50 ML BAG IV STA (15:47)
--- NOTE | 2021-10-28 15:51 | ED Physician Documentation ---
History of Present Illness - Stated complaint Stated Complaint: R LEG INFECTION - History obtained from History obtained from: Patient, EMS - Additonal information Additional information: 76-year-old gentleman with history of diabetes, leukemia on ibrutinib and recurrent leg infections developed right leg redness starting 3 days ago. He was seen in the clinic yesterday and started on Bactrim. He just filled it though and is only had 1 dose. Today he developed increasing weakness and shaking chills as well as being febrile up to 102. He was tachycardic prehospital into the 120s but with good blood pressures. He denies much pain. He does have a mild dry cough. No other URI symptoms. Single Episode of diarrhea overnight last night. History is difficult because he does seem delirious. He endorses a history of A. fib and says he is not on anticoagulation, presume related to the small intracranial hemorrhage he had in February per review of the chart. Review of Systems Ten Systems: 10 systems reviewed and negative Constitutional: reports: Fever, Chills, Fatigue Cardiac: denies: Chest pain / pressure, Palpitations Respiratory: reports: Cough. denies: Dyspnea GI: reports: Diarrhea. denies: Abdominal Pain, Nausea, Vomiting PD PAST MEDICAL HISTORY - Past Medical History Cardiovascular: Atrial fibrillation, Hypertension Respiratory: None Endocrine/Autoimmune: Type 2 diabetes GI: None : Benign prostate hypertrophy, Retention HEENT: None Psych: None Musculoskeletal: None Derm: None - Past Surgical History Past Surgical History: Yes General: Colonoscopy - Present Medications Home Medications: Ambulatory Orders Medication Instructions Recorded Confirmed Acyclovir 400 mg PO PRN 01/10/18 Alfuzosin HCl [Alfuzosin HCl ER] 10 mg PO 01/10/18 Atorvastatin Calcium 40 mg PO 01/10/18 Finasteride 5 mg PO 01/10/18 Ketotifen Fumarate 5 ml OP 01/10/18 - Allergies Allergies/Adverse Reactions: Allergies Allergy/AdvReac Type Severity Reaction Status Date / Time No Known Drug Allergies Allergy Verified 05/25/21 10:07 - Social History Does the pt smoke?: No Smoking Status: Never smoker Does the pt drink ETOH?: No Does the pt have substance abuse?: No - Immunizations Immunizations are current?: Yes - POLST Patient has POLST: No PD ED PE NORMAL - Vitals Vital signs reviewed: Yes - General General: Other (Shaky weak, alert and oriented to person and place but not time or events) - HEENT HEENT: PERRL, EOMI - Neck Neck: Supple, no meningeal sign, No bony TTP - Cardiac Cardiac: Other (Tachycardic and irregularly irregular) - Respiratory Respiratory: No respiratory distress, Clear bilaterally - Abdomen Abdomen: Normal bowel sounds, Soft, Non tender - Back Back: No CVA TTP, No spinal TTP - Extremities Extremities: Other (He has beet red cellulitis of the ankle and leg to just below the knee on the right. Good peripheral cap refill and no obvious abscess.) - Neuro Neuro: Alert and oriented X 3, Normal speech Results - Vitals Vitals: Vital Signs - 24 hr 10/28/21 10/28/21 10/28/21 15:47 15:57 16:06 Temperature 39.5 C H 39.5 C H 39.5 C H Heart Rate 154 H 154 H 154 H Respiratory 31 H 31 H 31 H Rate Blood Pressure 154/83 H 154/96 H 154/96 H O2 Saturation 95 88 L 95 10/28/21 16:30 Temperature Heart Rate 149 H Respiratory 33 H Rate Blood Pressure 154/83 H O2 Saturation 95 Oxygen O2 Source Nasal cannula Oxygen Flow Rate 4 - EKG (time done) 1612 Rate: Rate (enter#) (144) Rhythm: Atrial fibrillation [place]: RAD Ischemia: ST depression (lateral), Q waves (anterior) - Labs Labs: Laboratory Tests 10/28/21 10/28/21 10/28/21 16:00 16:00 16:00 WBC 4.2 L RBC 4.82 Hgb 14.1 Hct 43.6 MCV 90.5 MCH 29.3 MCHC 32.3 RDW 14.1 Plt Count 46 L MPV 10.8 Neut # (Auto) 3.6 Lymph # (Auto) 0.5 L [place] # (Auto) 0.0 Eos # (Auto) 0.0 Baso # (Auto) 0.0 Absolute Nucleated RBC 0.00 Nucleated RBC % 0.0 Sodium 138 Potassium 3.3 L Chloride 99 L Carbon Dioxide 30 Anion Gap 9.0 BUN 22 H Creatinine 1.1 Estimated GFR (MDRD) 65 L Glucose 128 H Lactic Acid 2.2 Calcium 8.7 Total Bilirubin 1.9 H AST 25 ALT 20 Alkaline Phosphatase 79 C-Reactive Protein B-Natriuretic Peptide Total Protein 7.3 Albumin 3.8 Globulin 3.5 Albumin/Globulin Ratio 1.1 10/28/21 10/28/21 16:00 16:00 WBC RBC Hgb Hct MCV MCH MCHC RDW Plt Count MPV Neut # (Auto) Lymph # (Auto) [place] # (Auto) Eos # (Auto) Baso # (Auto) Absolute Nucleated RBC Nucleated RBC % Sodium Potassium Chloride Carbon Dioxide Anion Gap BUN Creatinine Estimated GFR (MDRD) Glucose Lactic Acid Calcium Total Bilirubin AST ALT Alkaline Phosphatase C-Reactive Protein 17.7 H B-Natriuretic Peptide 145 H Total Protein Albumin Globulin Albumin/Globulin Ratio - Rads (name of study) Single view chest x-ray shows mild increase in interstitial markings and blunting of the costophrenic angles suggesting of mild CHF with trace effusio Radiology: EMP read contemporaneously PD MEDICAL DECISION MAKING - ED course ED course: 76-year-old gentleman with multiple comorbidities not the least of which include atrial fibrillation and diabetes presents with nonpurulent cellulitis of the right leg with high fever, A. fib with RVR and tachypnea. He is also hypoxic on room air. He was attended to immediately on arrival and ordered cefazolin and vancomycin for presumed source of soft tissue cellulitis causing sepsis. He was administered diltiazem IV and started on a drip for profound tachycardia. He was not given a lot of IV fluids as he does appear to be in mild CHF with hypoxemia. Spoke with Dr. Dumont for admission at 4:58 PM. I updated his daughter Shikha by phone. We discussed CODE STATUS and he does not have formal wishes laid out, her understanding is that he would like resuscitative efforts but not prolonged heroic measures. - Critical Care Time(min): 45 Time Includes: Direct patient care, Review records, Reassess patient, Document care, Coordinate care, Medical consult, Family consult for tx dec Data interpretation: Labs, Pulse ox Procedures included in critical care time: Peripheral IV Procedures excluded from critical care time: EKG Departure - Departure Disposition: 66 [facility] DC/Xfer Clinical Impression: Atrial fibrillation with RVR Cellulitis, leg Qualifiers: Laterality: right Qualified Code(s): L03.115 - Cellulitis of right lower limb Sepsis Qualifiers: Sepsis type: sepsis due to unspecified organism Sepsis acute organ dysfunction status: with acute organ dysfunction Severe sepsis acute organ dysfunction type: encephalopathy Severe sepsis shock status: without septic shock Qualified Code(s): A41.9 - Sepsis, unspecified organism Condition: Critical
--- OUTSIDE RECORDS SUMMARY | 2021-10-28 16:02 | EXTERNAL MEDICAL SUMMARY RPT | Continuity of Care Document ---
:1945 Author Organization [facility] Address [address] [place] [address] Phone Allergies No information. Encounters No information. Functional Status No information. Immunizations No information. Medications date description facility +0000 sulfamethoxazole-trimethoprim [facility] +0000 sulfamethoxazole-trimethoprim [facility] Problems No information. Procedures date description facility +0000 Visit Code Hold [facility] +0000 POC URINALYSIS DIP [facility] Results/Labs No information. Social History date description facility +0000 Former smoker [facility] Vital Signs date measurement value units +0000 BMI BMI 31.91 kg/m2 +0000 BP_diastolic BP_diastolic 71 mm[H g] +0000 BP_systolic BP_systolic 114 mm[Hg] [id number]+0000 heart_rate heart_rate 88 /min [id number]+0000 height_metric height_metric 167.64 cm +0000 height_standard height_standard 66 in +0000 respiration_rate respiration_rate 16 /min [id number]+0000 temperature_metric temperature_metric 36.5 C [id number]+0000 temperature_standard temperature_standard 9 7.7 F [id number]+0000 weight_metric weight_metric 89.36 kg [id number]+0000 weight_standard weight_standard 197 lb
[2021-10-28 16:11] LABS: BASOPHILS % (AUTO) 0.2 %; HCT - HEMATOCRIT 43.6 % (42.0-52.0); HGB - HEMOGLOBIN 14.1 g/dL (14.0-18.0); LYMPHOCYTES # (AUTO) 0.5 10^3/uL (1.5-3.5); LYMPHOCYTES % (AUTO) 12.8 %; MEAN CORPUSCULAR HEMOGLOBIN 29.3 pg (27.0-31.0); MEAN CORPUSCULAR HGB CONC 32.3 g/dL (32.0-36.0); MEAN CORPUSCULAR VOLUME 90.5 fL (80.0-94.0); MEAN PLATELET VOLUME 10.8 fL (7.4-11.4); MONOCYTES % (AUTO) 0.5 %; NEUTROPHILS # (AUTO) 3.6 10^3/uL (1.5-6.6); NEUTROPHILS % (AUTO) 84.8 %; PLT - PLATELET COUNT 46 10^3/uL (130-450); RED BLOOD COUNT 4.82 10^6/uL (4.70-6.10); RED CELL DISTRIBUTION WIDTH 14.1 % (12.0-15.0); WHITE BLOOD COUNT 4.2 x10^3/uL (4.8-10.8)
[2021-10-28 16:22] LABS: ALBUMIN 3.8 g/dL (3.2-5.5); ALBUMIN/GLOBULIN RATIO 1.1 (1.0-2.2); BILIRUBIN,TOTAL 1.9 mg/dL (0.2-1.0); CALCIUM 8.7 mg/dL (8.5-10.3); CREATININE 1.1 mg/dL (0.6-1.2); POTASSIUM 3.3 mmol/L (3.5-5.0); TOTAL PROTEIN 7.3 g/dL (6.7-8.2)
[2021-10-28 16:23] LABS: LACTIC ACID, VENOUS 2.2 mmol/L (0.5-2.2)
[2021-10-28] MEDS ORDERED: diltiaZEM INJ 5 MG/ML VIAL IVP STA (16:26)
--- NOTE | 2021-10-28 16:40 | XRAY Report ---
PROCEDURE: Chest 1 View X-Ray INDICATIONS: hypoxemia TECHNIQUE: One view of the chest was acquired. COMPARISON: Chest x-ray 03/23/2021 FINDINGS: Surgical changes and devices: None. Lungs and pleura: Increased interstitial markings are present. There is trace blunting of the costoph renic angles. Mediastinum: Mediastinal contours appear normal. Heart size is enlarged. Bones and chest wall: No suspicious bony lesions. Overlying soft tissues appear unremarkable. IMPRESSION: Mild appearance of increased interstitial markings with blunting of the costophrenic angles and cardi omegaly suggestive of CHF with trace effusions. Reviewed by: Sarah Lewis MD on 10/28/2021 4:38 PM PDT Approved by: Sarah Lewis MD on 10/28/2021 4:38 PM PDT Station ID: [id number]
[2021-10-28] MEDS ORDERED: ONDANSETRON ODT 4 MG TABLET TL PRN (16:58)
[2021-10-28] MEDS ORDERED: SODIUM CHLORIDE FLUSH 0.9% 10 ML SYRINGE IVP PRN (16:58)
[2021-10-28] MEDS ORDERED: ONDANSETRON 4 MG/2 ML VIAL IVP PRN (16:58)
[2021-10-28] MEDS ORDERED: diltiaZEM INJ 125 MG in DEXTROSE 5% 100 ML IV SCH (17:00)
[2021-10-28] MEDS ORDERED: ACETAMINOPHEN 500 MG TABLET PO STA (17:14)
[2021-10-28 18:08] LABS: BILIRUBIN,URINE NEGATIVE (NEGATIVE); GLUCOSE, URINE (UA) NEGATIVE (NEGATIVE); KETONES,URINE (UA) NEGATIVE (NEGATIVE); LEUKOCYTE ESTERASE, URINE NEGATIVE (NEGATIVE); NITRITE,URINE NEGATIVE (NEGATIVE); OCCULT BLOOD,URINE NEGATIVE (NEGATIVE); PROTEIN,URINE NEGATIVE (NEGATIVE); UROBILINOGEN,URINE 0.2 (NORMAL) E.U./dL (NORMAL)
[2021-10-28] MEDS: SODIUM CHLORIDE FLUSH 0.9% 10 ML SYRINGE IVP SCH (18:09)
[2021-10-28 18:11] LABS: CLARITY,URINE CLEAR (CLEAR)
[2021-10-28 18:34] LABS: B. PARAPERTUSSIS- RESP PCR PAN NOT DETECTED; B. PERTUSSIS- RESP PCR PANEL NOT DETECTED; C. PNEUMONIAE- RESP PCR PANEL NOT DETECTED; CORONAVIRUS 229E-RESP PCR NOT DETECTED; CORONAVIRUS HKU1-RESP PCR NOT DETECTED; CORONAVIRUS NL63-RESP PCR NOT DETECTED; CORONAVIRUS OC43-RESP PCR NOT DETECTED; HUMAN METAPNEUMOVIRUS NOT DETECTED; INFLUENZA A- RESP PCR PANEL NOT DETECTED; INFLUENZA B - RESP PCR PANEL NOT DETECTED; M. PNEUMONIAE- RESP PCR PANEL NOT DETECTED; PARAINFLUENZA VIRUS 1 NOT DETECTED; PARAINFLUENZA VIRUS 2 NOT DETECTED; PARAINFLUENZA VIRUS 3 NOT DETECTED; PARAINFLUENZA VIRUS 4 NOT DETECTED; RHINOVIRUS/ENTEROVIRUS NOT DETECTED; RSV- RESP PCR PANEL NOT DETECTED; SARS-CoV-2 -RESP PCR PANEL NOT DETECTED
[2021-10-28 18:37] LABS: BACTERIA,URINE Rare /HPF (None Seen); RBC,URINE None Seen /HPF (0-5); SQUAMOUS EPITHELIAL CELL,UR RARE Squamous (<= Few); WBC,URINE 0-3 /HPF (0-3)
--- NOTE | 2021-10-28 20:32 | HISTORY & PHYSICAL EXAMINATION ---
Chief Complaint - Chief Complaint Chief Complaint: Confusion and right leg redness History of Present Illness - Admitted From Admitted From:: Home - History Obtained From Records Reviewed: [facility] History obtained from: ER Physician, Family, EMR Exam Limitations: Patient is encephalopathic - History of Present Illness HPI Comment/Other: This is a 76-year-old male with a past medical history significant for recurrent right lower extremity cellulitis, atrial fibrillation with watchman device in place, leukemia on ibrutinib, history of brain hemorrhage who presents today due to confusion and right lower extremity erythema. The history is obtained from the patient's family as he is encephalopathic and a poor historian. His daughter states that he started become a bit more delirious over the past couple days but this really progressed this morning and that is why they called EMS. He did see a walk-in clinic yesterday for right lower extremity cellulitis but he did not start the Bactrim until this morning. She states he always has recurrent right lower extremity cellulitis and has been admitted multiple times in the past for similar problems. She stated a little diarrhea yesterday but he did not have any abdominal pain or other symptoms. He was complaining of right leg pain over the past couple days which made him suspect he was developing cellulitis. She states he does have chronic lower extremity edema and is on a diuretic. He does not have a history of heart failure to her knowledge. He is on ibrutinib for leukemia and does have a history of atrial fibrillation. He is not on anticoagulation because he has a watchman device in place. He gets all of his care at the [facility] which is where his primary care physician, oncologist are. In the emergency department, he was noted to be febrile, tachycardic, tachypneic and hypoxic requiring 4 L of oxygen via nasal cannula. Labs revealed leukopenia and thrombocytopenia. Chest x-ray suggest pulmonary edema. He was given vancomycin and cefazolin in the emergency department. Medicine was then consulted for admission. I discussed goals of care with the patient's daughters given he is altered and unable to make his own decisions. They feel that he would want to be a full code. History - Past Medical History Cardiovascular: reports: Atrial fibrillation, Hypertension Respiratory: reports: None Endocrine/Autoimmune: reports: Type 2 diabetes GI: reports: None : reports: Benign prostate hypertrophy, Retention HEENT: reports: None Psych: reports: None Musculoskeletal: reports: None Derm: reports: None MRSA Hx?: No Other Past Medical History: Cerebral hemorrhage, leukemia. - Past Surgical History General: reports: Colonoscopy Cardiovascular: reports: Other (Watchman device) - Family & Social History Family History Comment/Other: His daughters report that his sister has a history leukemia. Living arrangement: At home Living Situation: With family Social History Notes: He lives at home with his daughter. His daughter reports he is a non-smoker and does not drink alcohol. - POLST Patient has POLST: No Meds/Allgy - Home Medications Home Medications: Ambulatory Orders Medication Instructions Recorded Confirmed Acyclovir 400 mg PO PRN 01/10/18 Alfuzosin HCl [Alfuzosin HCl ER] 10 mg PO 01/10/18 Atorvastatin Calcium 40 mg PO 01/10/18 Finasteride 5 mg PO 01/10/18 Ketotifen Fumarate 5 ml OP 01/10/18 - Allergies Allergies/Adverse Reactions: Allergies Allergy/AdvReac Type Severity Reaction Status Date / Time No Known Drug Allergies Allergy Verified 05/25/21 10:07 Review of Systems - All Other Systems All Other Systems: reports: Other (Unable to obtain due to encephalopathy) Prior Level of Functionality: He is normally independent with his ADLs. Exam - Vital Signs Reviewed Vital Signs: Yes Vital Signs: Vital Signs x48h Temp Pulse Pulse Resp BP BP Pulse Ox 10/28/21 20:16 39.7 C H 10/28/21 20:00 115 H 36 H 118/56 L 92 10/28/21 18:17 40.3 C H 127 H 29 H 141/74 H 92 10/28/21 16:30 149 H 33 H 154/83 H 95 10/28/21 16:06 39.5 C H 154 H 31 H 154/96 H 95 10/28/21 15:57 39.5 C H 154 H 31 H 154/96 H 88 L 10/28/21 15:47 39.5 C H 154 H 31 H 154/83 H 95 - Physical Exam General Appearance: positive: Other (He is lethargic but does respond to commands although he is tangential and quickly dozes off.) Eyes Bilateral: positive: Conjunctivae nml ENT: positive: ENT inspection nml Neck: positive: Nml inspection Respiratory: positive: No respiratory distress, Other (He is not in distress but he is tachypneic. Rales present bilaterally) Cardiovascular: positive: Irregularly irregular, Tachycardia. negative: Systolic murmur Abdomen: positive: Non-tender, No distention. negative: Tenderness Skin: positive: Warm, Dry, Other (His right lower extremity is erythematous, warm and tender to touch from the dorsum of the right foot up to the knee.) Extremities: positive: Pedal edema (+1 to +2 pitting edema in the bilateral lower extremities that is worse in the right lower extremity) Neurologic/Psychiatric: positive: Disoriented to place, Disoriented to time, Other (He has no focal deficits on exam.). negative: Disoriented to person Sepsis Event Note (H) - Evaluation Current Stage of Sepsis: Severe sepsis Possible source of Sepsis: positive: Skin/soft tissue - Sepsis Criteria Sepsis Criteria: Recorded Temperature greater than 38.3C or Less than 36C, Recorded Heart Rate greater than 90 bpm, Recorded Respiratory Rate greater than 20, Respiratory: Increasing oxygen requirements, [employer]: altered consciousness (unrelated to primary neuro pathology), Hematologic: platelets < 100,000; INR > 1.5, or a PTT>60 seconds Conclusion/Plan - Problem List (1) Severe sepsis Conclusion/Plan: This is secondary to the right lower extremity cellulitis. Presented with encephalopathy, fever, tachycardia, tachypnea. We will start him on vancomycin and ceftriaxone for the right lower extremity cellulitis. There has been no other obvious source of infection. Suspect he will most certainly be bacteremic and we will follow-up the blood cultures. Daily CBC. No IV fluids given he is maintaining his blood pressure with a normal lactic acid and concern for heart failure. (2) Encephalopathy Conclusion/Plan: This appears be secondary to the sepsis. He has no focal deficits on exam to suggest stroke. His TSH is within normal limits. We will treat underlying infection with IV antibiotics. Suspect he will improve over next 24 to 48 hours. Avoid sedatives. (3) Acute respiratory failure with hypoxia Conclusion/Plan: Suspect this is related to his sepsis although there could be a component of heart failure as well.He is hypoxic requiring 4 L of oxygen via nasal cannula. Chest x-ray suggest pulmonary edema he does have lower extremity edema. His BNP is only mildly elevated. At this time, we will hold off on diuresis given the concern for sepsis unless he has an increase in his oxygen requirements. We w ill hold off on IV fluids as mentioned above. We will look to start him on diuresis if his blood pressure remained stable over the next 24 hours. We will look to obtain an echocardiogram. (4) Cellulitis of right lower extremity Conclusion/Plan: This is a cause of his sepsis. He has a history of recurrent right lower extremity cellulitis. We will start him on vancomycin and ceftriaxone. I suspect he will most certainly be bacteremic given the severe sepsis. We will look to de-escalate antibiotics as he clinically improves. Check CRP. (5) Atrial fibrillation with RVR Conclusion/Plan: He presented with heart rates in the 150s. This is likely due to the sepsis. He has been started on a diltiazem drip and his heart rate is improved to the 110s. He is not on anticoagulation as he is a watchman device in place and a history of cerebral hemorrhage. We will keep him on a diltiazem drip and as his mentation improves, we will resume his home metoprolol. Monitor on telemetry. (6) Thrombocytopenia Conclusion/Plan: His platelet count is decreased in the 40s but reviewing prior labs also revealed that he had a white count in the 70s back in February of last year. He appeared to have sepsis at that time secondary to cellulitis as well as cerebral hemorrhage. His current thrombocytopenia may be due to the sepsis or use of ibrutinib. We will check a daily CBC. No Lovenox or heparin. We cannot use SCDs due to the cellulitis. (7) Leukemia Conclusion/Plan: He is known history of leukemia and he is on ibrutinib. We will hold this at this time given the active infection. He will need outpatient follow-up with his oncologist. - Lab Results Lab results reviewed: Yes Fish Bones: 10/28/21 16:00 10/28/21 16:00 - Diagnostic Imaging Results Diagnostic Imaging Results: positive: Final report reviewed - EKG Results EKG Interpreted Independently: Yes EKG Findings: EKG shows atrial fibrillation with rapid ventricular response. Nonspecific ST s egment changes. Core Measures - Anticipated LOS I expect patient to be DC'd or transferred within 96 hours.: Yes - Issues Hospital Issues and Management Plan: 76-year-old male with history of recurrent right lower extremity cellulitis and leukemia presents with encephalopathy and right lower extremity cellulitis. He has severe sepsis secondary to cellulitis and we will admit to the ICU for IV antibiotics. - DVT/VTE - Prophylaxis VTE/DVT Device ordered at admit?: No Not Ordered - Medical Reason: Contraindicated VTE/DVT Prophylaxis med ordered at admit?: No Not Ordered - Medical Reason: Contraindicated
[2021-10-28] MEDS: POTASSIUM CHLOR 10 MEQ/100 ML 10 MEQ/100 ML BAG IV SCH ×2 (21:16→22:46)
[2021-10-29] MEDS: POTASSIUM CHLOR 10 MEQ/100 ML 10 MEQ/100 ML BAG IV SCH ×2 (00:19→01:53)
[2021-10-29] MEDS: SODIUM CHLORIDE FLUSH 0.9% 10 ML SYRINGE IVP SCH ×3 (01:53→17:07)
[2021-10-29] MEDS ORDERED: LIDOCAINE 2% URO-JET 5 ML SYRINGE UR ONE (02:10)
[2021-10-29] MEDS: VANCOMYCIN INJ 1 GM in SODIUM CHLORIDE 0.9% 250 ML IV SCH ×2 (04:39→17:07)
[2021-10-29 06:31] LABS: BASOPHILS % (AUTO) 0.1 %; CALCIUM, IONIZED 0.98 mmol/L (1.15-1.33); EOSINOPHILS % (AUTO) 0.1 %; HCT - HEMATOCRIT 36.9 % (42.0-52.0); HGB - HEMOGLOBIN 11.8 g/dL (14.0-18.0); LYMPHOCYTES % (AUTO) 4.1 %; MEAN CORPUSCULAR HEMOGLOBIN 28.7 pg (27.0-31.0); MEAN CORPUSCULAR VOLUME 89.8 fL (80.0-94.0); MEAN PLATELET VOLUME 12.6 fL (7.4-11.4); MONOCYTES % (AUTO) 4.7 %; NEUTROPHILS % (AUTO) 88.8 %; PLT - PLATELET COUNT 46 10^3/uL (130-450); RED BLOOD COUNT 4.11 10^6/uL (4.70-6.10); RED CELL DISTRIBUTION WIDTH 14.3 % (12.0-15.0); VBG PH 7.37 (7.31-7.41); WHITE BLOOD COUNT 9.1 x10^3/uL (4.8-10.8)
[2021-10-29 06:37] LABS: ABNORMAL LYMPHS % (MANUAL) 0 %
[2021-10-29 06:44] LABS: CALCIUM 7.5 mg/dL (8.5-10.3); CREATININE 1.3 mg/dL (0.6-1.2); CRP - C-REACTIVE PROTEIN 16.7 mg/dL (0-1.0); MAGNESIUM 1.7 mg/dL (1.7-2.8); PHOSPHORUS 3.9 mg/dL (2.5-4.6)
[2021-10-29 07:04] LABS: BAND NEUTROPHILS % (MANUAL) 16 %; DIFFERENTIAL COMMENT MANUAL DIFFERENTIAL; LYMPHOCYTES # (MANUAL) 0.6 10^3/uL (1.5-3.5); LYMPHOCYTES % (MANUAL) 7 %; MONOCYTES # (MANUAL) 0.2 10^3/uL (0.0-1.0); NEUTROPHILS # (MANUAL) 8.3 10^3/uL (1.5-6.6); PLATELET ESTIMATE, MANUAL DECREASED (<130,000) (NORMAL); RBC MORPHOLOGY (MULTIPLE) NORMAL APPEARANCE (NORMAL)
--- NOTE | 2021-10-29 07:23 | PROVIDER PROGRESS NOTE ---
Subjective - Prog Note Date Prog Note Date: 10/29/21 - Subjective Subjective: He feels much improved. He knows he is a hospital that he is here because of the right leg cellulitis. He confirms what his daughter's to me yesterday which is he has recurrent cellulitis. Denies any chest pain or dyspnea. Current Medications - Current Medications Current Medications: Active Medications Acetaminophen (Acetaminophen 325 Mg Tablet) 650 mg PO Q4HR PRN PRN Reason: Pain 1 to 4, or Fever Last Admin: 10/29/21 09:24 Dose: 650 mg Ceftriaxone Sodium 2 gm/ (Sodium Chloride) 100 mls @ 200 mls/hr IV DAILY [facility] Last Infusion: 10/29/21 10:00 Dose: Infused Vancomycin HCl 1 gm/ Sodium (Chloride) 250 mls @ 166.667 mls/hr IV Q12H [facility] Last Infusion: 10/29/21 06:42 Dose: Infused Insulin Aspart (Insulin Aspart 300 Unit/3 Ml Pen) 1 - 9 unit SUBQ 0800,1200,1700,2100 [facility]; Protocol Last Admin: 10/29/21 11:46 Dose: 5 unit Magnesium Oxide (Magnesium Oxide 400 Mg Tablet) 400 mg PO Q6H [facility]; Protocol Stop: 10/29/21 15:01 Last Admin: 10/29/21 09:24 Dose: 400 mg Metoprolol Succinate (Metoprolol Succinate 50 Mg Tablet) 50 mg PO DAILY [facility] Last Admin: 10/29/21 09:24 Dose: 50 mg Ondansetron HCl (Ondansetron Odt 4 Mg Tablet) 4 mg TL Q6HR PRN PRN Reason: Nausea / Vomiting Ondansetron HCl (Ondansetron 4 Mg/2 Ml Vial) 4 mg IVP Q6HR PRN PRN Reason: Nausea / Vomiting Sodium Chloride (Sodium Chloride Flush 0.9% 10 Ml Syringe) 10 ml IVP 0100,0900,1700 [facility] Last Admin: 10/29/21 09:24 Dose: 10 ml Sodium Chloride (Sodium Chloride Flush 0.9% 10 Ml Syringe) 10 ml IVP PRN PRN PRN Reason: NEEDED PER PROVIDER ORDERS Acyclovir 400 mg PO TID 01/10/18 Alfuzosin HCl [Alfuzosin HCl ER] 10 mg PO DAILY 01/10/18 Atorvastatin Calcium 40 mg PO HS 01/10/18 Finasteride 5 mg PO DAILY 01/10/18 Ketotifen Fumarate 5 ml EACHEYE BID 01/10/18 Aspirin EC [Ecotrin] 81 mg PO DAILY 10/29/21 Furosemide [Lasix] 40 mg PO BIDDIURETIC 10/29/21 Metformin HCl [Glumetza] 500 mg PO DAILY 10/29/21 Metoprolol Succinate [Toprol Xl] 25 mg PO DAILY 10/29/21 Mupirocin 2% Oint [Bactroban 2% Oint] 1 applic TOP DAILY 10/29/21 Objective - Vital Signs/Intake & Output Reviewed Vital Signs: Yes Vital Signs: Vital Signs Pulse Resp BP Pulse Ox 10/29/21 07:00 83 25 H 95/59 L 100 10/29/21 06:00 76 27 H 103/62 97 10/29/21 05:00 84 28 H 107/69 96 10/29/21 04:00 72 28 H 89/58 L 96 Intake & Output: Intake & Output 10/26/21 10/27/21 10/28/21 10/29/21 23:59 23:59 23:59 23:59 Intake Total 1415.667 832.25 Output Total 1130 Balance 1415.667 -297.75 - Objective General Appearance: positive: No acute distress, Alert Eyes Bilateral: positive: Conjunctivae nml ENT: positive: ENT inspection nml Neck: positive: Nml inspection Respiratory: positive: No respiratory distress, Other (Faint crackles bilaterally) Cardiovascular: positive: Irregularly irregular. negative: Tachycardia, Systolic murmur Abdomen: positive: Non-tender, No distention. negative: Tenderness Skin: positive: Warm, Dry, Other (Right lower extremity remains erythematous, warm to touch, and tender palpation from the dorsum of the foot up to the knee) Extremities: positive: Pedal edema (+1 edema in bilateral lower extremities) Neurologic/Psychiatric: positive: Other (No focal deficits). negative: Disoriented to person, Disoriented to place, Disoriented to time - Lab Results Fish Bones: 10/29/21 04:26 10/29/21 04:26 Other Labs: Lab Results x24hrs 10/29/21 10/29/21 10/29/21 Range/Units 04:26 04:26 04:26 WBC 9.1 (4.8-10.8) x10^3/uL RBC 4.11 L (4.70-6.10) 10^6/uL Hgb 11.8 L (14.0-18.0) g/dL Hct 36.9 L (42.0-52.0) % MCV 89.8 (80.0-94.0) fL MCH 28.7 (27.0-31.0) pg MCHC 32.0 (32.0-36.0) g/dL RDW 14.3 (12.0-15.0) % Plt Count 46 L (130-450) 10^3/uL MPV 12.6 H (7.4-11.4) fL Neut # (Auto) Not Reportable (1.5-6.6) 10^3/uL Lymph # (Auto) Not Reportable (1.5-3.5) 10^3/uL [place] # (Auto) Not Reportable (0.0-1.0) 10^3/uL Eos # (Auto) Not Reportable (0.0-0.7) 10^3/uL Baso # (Auto) Not Reportable (0.0-0.1) 10^3/uL Absolute Nucleated RBC Not Reportable x10^3/uL Total Counted 100 Band Neuts % (Manual) 16 H (0 - 10) % Abnorm Lymph % (Manual) 0 % Nucleated RBC % Not Reportable /100WBC Neutrophils # (Manual) 8.3 H (1.5-6.6) 10^3/uL Lymphocytes # (Manual) 0.6 L (1.5-3.5) 10^3/uL Monocytes # (Manual) 0.2 (0.0-1.0) 10^3/uL Eosinophils # (Manual) 0.0 (0-0.7) 10^3/uL Basophils # (Manual) 0.0 (0-0.1) 10^3/uL Differential Comment MANUAL DIFFERENTIAL Platelet Estimate DECREASED (<130,000) (NORMAL) RBC Morph Micro Appear NORMAL APPEARANCE (NORMAL) VBG pH 7.370 (7.31-7.41) Ionized Calcium 0.98 L (1.15-1.33) mmol/L Sodium 133 L (135-145) mmol/L Potassium 4.0 (3.5-5.0) mmol/L Chloride 97 L (101-111) mmol/L Carbon Dioxide 23 (21-32) mmol/L Anion Gap 13.0 (6-13) BUN 27 H (6-20) mg/dL Creatinine 1.3 H (0.6-1.2) mg/dL Estimated GFR (MDRD) 53 L (>89) Glucose 262 H (70-100) mg/dL Lactic Acid (0.5-2.2) mmol/L Calcium 7.5 L (8.5-10.3) mg/dL Phosphorus 3.9 (2.5-4.6) mg/dL Magnesium 1.7 (1.7-2.8) mg/dL Total Bilirubin (0.2-1.0) mg/dL AST (10-42) IU/L ALT (10-60) IU/L Alkaline Phosphatase (42-121) IU/L C-Reactive Protein 16.7 H (0-1.0) mg/dL B-Natriuretic Peptide (5-100) pg/mL Total Protein (6.7-8.2) g/dL Albumin (3.2-5.5) g/dL Globulin (2.1-4.2) g/dL Albumin/Globulin Ratio (1.0-2.2) TSH (0.34-5.60) uIU/mL Urine Color Urine Clarity (CLEAR) Urine pH (5.0-7.5) PH Ur Specific Harvey (1.002-1.030) Urine Protein (NEGATIVE) mg/dL Urine Glucose (UA) (NEGATIVE) mg/dL Urine Ketones (NEGATIVE) mg/dL Urine Occult Blood (NEGATIVE) Urine Nitrite (NEGATIVE) Urine Bilirubin (NEGATIVE) Urine Urobilinogen (NORMAL) E.U./dL Ur Leukocyte Esterase (NEGATIVE) Urine RBC (0-5) /HPF Urine WBC (0-3) /HPF Ur Squamous Epith Cells (<= Few) Urine Bacteria (None Seen) /HPF Urine Culture Comments Nasal Adenovirus (PCR) Nasal B. parapertussis DNA (PCR) Nasal Coronavir 229E PCR Nasal Coronavir HKU1 PCR Nasal Coronavir NL63 PCR Nasal Coronavir OC43 PCR Nasal Enterovir/Rhinovir PCR Nasal Influenza B PCR Nasal Influenza A PCR Nasal Parainfluen 1 PCR Nasal Parainfluen 2 PCR Nasal Parainfluen 3 PCR Nasal Parainfluen 4 PCR Nasal RSV (PCR) Nasal Screen MRSA (PCR) (NEGATIVE) Nasal B.pertussis DNA PCR Nasal C.pneumoniae (PCR) Gary Human Metapneumo PCR Nasal M.pneumoniae (PCR) Nasal SARS-CoV-2 (PCR) 10/28/21 10/28/21 10/28/21 Range/Units 20:00 19:13 17:57 WBC (4.8-10.8) x10^3/uL RBC (4.70-6.10) 10^6/uL Hgb (14.0-18.0) g/dL Hct (42.0-52.0) % MCV (80.0-94.0) fL MCH (27.0-31.0) pg MCHC (32.0-36.0) g/dL RDW (12.0-15.0) % Plt Count (130-450) 10^3/uL MPV (7.4-11.4) fL Neut # (Auto) (1.5-6.6) 10^3/uL Lymph # (Auto) (1.5-3.5) 10^3/uL [place] # (Auto) (0.0-1.0) 10^3/uL Eos # (Auto) (0.0-0.7) 10^3/uL Baso # (Auto) (0.0-0.1) 10^3/uL Absolute Nucleated RBC x10^3/uL Total Counted Band Neuts % (Manual) (0 - 10) % Abnorm Lymph % (Manual) % Nucleated RBC % /100WBC Neutrophils # (Manual) (1.5-6.6) 10^3/uL Lymphocytes # (Manual) (1.5-3.5) 10^3/uL Monocytes # (Manual) (0.0-1.0) 10^3/uL Eosinophils # (Manual) (0-0.7) 10^3/uL Basophils # (Manual) (0-0.1) 10^3/uL Differential Comment Platelet Estimate (NORMAL) RBC Morph Micro Appear (NORMAL) VBG pH (7.31-7.41) Ionized Calcium (1.15-1.33) mmol/L Sodium (135-145) mmol/L Potassium (3.5-5.0) mmol/L Chloride (101-111) mmol/L Carbon Dioxide (21-32) mmol/L Anion Gap (6-13) BUN (6-20) mg/dL Creatinine (0.6-1.2) mg/dL Estimated GFR (MDRD) (>89) Glucose (70-100) mg/dL Lactic Acid 1.5 (0.5-2.2) mmol/L Calcium (8.5-10.3) mg/dL Phosphorus (2.5-4.6) mg/dL Magnesium (1.7-2.8) mg/dL Total Bilirubin (0.2-1.0) mg/dL AST (10-42) IU/L ALT (10-60) IU/L Alkaline Phosphatase (42-121) IU/L C-Reactive Protein (0-1.0) mg/dL B-Natriuretic Peptide (5-100) pg/mL Total Protein (6.7-8.2) g/dL Albumin (3.2-5.5) g/dL Globulin (2.1-4.2) g/dL Albumin/Globulin Ratio (1.0-2.2) TSH (0.34-5.60) uIU/mL Urine Color YELLOW Urine Clarity CLEAR (CLEAR) Urine pH 6.0 (5.0-7.5) PH Ur Specific [place] 1.010 (1.002-1.030) Urine Protein NEGATIVE (NEGATIVE) mg/dL Urine Glucose (UA) NEGATIVE (NEGATIVE) mg/dL Urine Ketones NEGATIVE (NEGATIVE) mg/dL Urine Occult Blood NEGATIVE (NEGATIVE) Urine Nitrite NEGATIVE (NEGATIVE) Urine Bilirubin NEGATIVE (NEGATIVE) Urine Urobilinogen 0.2 (NORMAL) (NORMAL) E.U./dL Ur Leukocyte Esterase NEGATIVE (NEGATIVE) Urine RBC None Seen (0-5) /HPF Urine WBC 0-3 (0-3) /HPF Ur Squamous Epith Cells RARE Squamous (<= Few) Urine Bacteria Rare (None Seen) /HPF Urine Culture Comments NOT INDICATED Nasal Adenovirus (PCR) Nasal B. parapertussis DNA (PCR) Nasal Coronavir 229E PCR Nasal Coronavir HKU1 PCR Nasal Coronavir NL63 PCR Nasal Coronavir OC43 PCR Nasal Enterovir/Rhinovir PCR Nasal Influenza B PCR Nasal Influenza A PCR Nasal Parainfluen 1 PCR Nasal Parainfluen 2 PCR Nasal Parainfluen 3 PCR Nasal Parainfluen 4 PCR Nasal RSV (PCR) Nasal Screen MRSA (PCR) NEGATIVE (NEGATIVE) Nasal B.pertussis DNA PCR Nasal C.pneumoniae (PCR) Gary Human Metapneumo PCR Nasal M.pneumoniae (PCR) Nasal SARS-CoV-2 (PCR) 10/28/21 10/28/21 10/28/21 Range/Units 17:15 16:00 16:00 WBC (4.8-10.8) x10^3/uL RBC (4.70-6.10) 10^6/uL Hgb (14.0-18.0) g/dL Hct (42.0-52.0) % MCV (80.0-94.0) fL MCH (27.0-31.0) pg MCHC (32.0-36.0) g/dL RDW (12.0-15.0) % Plt Count (130-450) 10^3/uL MPV (7.4-11.4) fL Neut # (Auto) (1.5-6.6) 10^3/uL Lymph # (Auto) (1.5-3.5) 10^3/uL [place] # (Auto) (0.0-1.0) 10^3/uL Eos # (Auto) (0.0-0.7) 10^3/uL Baso # (Auto) (0.0-0.1) 10^3/uL Absolute Nucleated RBC x10^3/uL Total Counted Band Neuts % (Manual) (0 - 10) % Abnorm Lymph % (Manual) % Nucleated RBC % /100WBC Neutrophils # (Manual) (1.5-6.6) 10^3/uL Lymphocytes # (Manual) (1.5-3.5) 10^3/uL Monocytes # (Manual) (0.0-1.0) 10^3/uL Eosinophils # (Manual) (0-0.7) 10^3/uL Basophils # (Manual) (0-0.1) 10^3/uL Differential Comment Platelet Estimate (NORMAL) RBC Morph Micro Appear (NORMAL) VBG pH (7.31-7.41) Ionized Calcium (1.15-1.33) mmol/L Sodium (135-145) mmol/L Potassium (3.5-5.0) mmol/L Chloride (101-111) mmol/L Carbon Dioxide (21-32) mmol/L Anion Gap (6-13) BUN (6-20) mg/dL Creatinine (0.6-1.2) mg/dL Estimated GFR (MDRD) (>89) Glucose (70-100) mg/dL Lactic Acid (0.5-2.2) mmol/L Calcium (8.5-10.3) mg/dL Phosphorus (2.5-4.6) mg/dL Magnesium (1.7-2.8) mg/dL Total Bilirubin (0.2-1.0) mg/dL AST (10-42) IU/L ALT (10-60) IU/L Alkaline Phosphatase (42-121) IU/L C-Reactive Protein 17.7 H (0-1.0) mg/dL B-Natriuretic Peptide (5-100) pg/mL Total Protein (6.7-8.2) g/dL Albumin (3.2-5.5) g/dL Globulin (2.1-4.2) g/dL Albumin/Globulin Ratio (1.0-2.2) TSH 3.14 (0.34-5.60) uIU/mL Urine Color Urine Clarity (CLEAR) Urine pH (5.0-7.5) PH Ur Specific [place] (1.002-1.030) Urine Protein (NEGATIVE) mg/dL Urine Glucose (UA) (NEGATIVE) mg/dL Urine Ketones (NEGATIVE) mg/dL Urine Occult Blood (NEGATIVE) Urine Nitrite (NEGATIVE) Urine Bilirubin (NEGATIVE) Urine Urobilinogen (NORMAL) E.U./dL Ur Leukocyte Esterase (NEGATIVE) Urine RBC (0-5) /HPF Urine WBC (0-3) /HPF Ur Squamous Epith Cells (<= Few) Urine Bacteria (None Seen) /HPF Urine Culture Comments Nasal Adenovirus (PCR) NOT DETECTED Nasal B. parapertussis DNA (PCR) NOT DETECTED Nasal Coronavir 229E PCR NOT DETECTED Nasal Coronavir HKU1 PCR NOT DETECTED Nasal Coronavir NL63 PCR NOT DETECTED Nasal Coronavir OC43 PCR NOT DETECTED Nasal Enterovir/Rhinovir PCR NOT DETECTED Nasal Influenza B PCR NOT DETECTED Nasal Influenza A PCR NOT DETECTED Nasal Parainfluen 1 PCR NOT DETECTED Nasal Parainfluen 2 PCR NOT DETECTED Nasal Parainfluen 3 PCR NOT DETECTED Nasal Parainfluen 4 PCR NOT DETECTED Nasal RSV (PCR) NOT DETECTED Nasal Screen MRSA (PCR) (NEGATIVE) Nasal B.pertussis DNA PCR NOT DETECTED Nasal C.pneumoniae (PCR) NOT DETECTED Gary Human Metapneumo PCR NOT DETECTED Nasal M.pneumoniae (PCR) NOT DETECTED Nasal SARS-CoV-2 (PCR) NOT DETECTED 10/28/21 10/28/21 10/28/21 Range/Units 16:00 16:00 16:00 WBC (4.8-10.8) x10^3/uL RBC (4.70-6.10) 10^6/uL Hgb (14.0-18.0) g/dL Hct (42.0-52.0) % MCV (80.0-94.0) fL MCH (27.0-31.0) pg MCHC (32.0-36.0) g/dL RDW (12.0-15.0) % Plt Count (130-450) 10^3/uL MPV (7.4-11.4) fL Neut # (Auto) (1.5-6.6) 10^3/uL Lymph # (Auto) (1.5-3.5) 10^3/uL [place] # (Auto) (0.0-1.0) 10^3/uL Eos # (Auto) (0.0-0.7) 10^3/uL Baso # (Auto) (0.0-0.1) 10^3/uL Absolute Nucleated RBC x10^3/uL Total Counted Band Neuts % (Manual) (0 - 10) % Abnorm Lymph % (Manual) % Nucleated RBC % /100WBC Neutrophils # (Manual) (1.5-6.6) 10^3/uL Lymphocytes # (Manual) (1.5-3.5) 10^3/uL Monocytes # (Manual) (0.0-1.0) 10^3/uL Eosinophils # (Manual) (0-0.7) 10^3/uL Basophils # (Manual) (0-0.1) 10^3/uL Differential Comment Platelet Estimate (NORMAL) RBC Morph Micro Appear (NORMAL) VBG pH (7.31-7.41) Ionized Calcium (1.15-1.33) mmol/L Sodium 138 (135-145) mmol/L Potassium 3.3 L (3.5-5.0) mmol/L Chloride 99 L (101-111) mmol/L Carbon Dioxide 30 (21-32) mmol/L Anion Gap 9.0 (6-13) BUN 22 H (6-20) mg/dL Creatinine 1.1 (0.6-1.2) mg/dL Estimated GFR (MDRD) 65 L (>89) Glucose 128 H (70-100) mg/dL Lactic Acid 2.2 (0.5-2.2) mmol/L Calcium 8.7 (8.5-10.3) mg/dL Phosphorus (2.5-4.6) mg/dL Magnesium (1.7-2.8) mg/dL Total Bilirubin 1.9 H (0.2-1.0) mg/dL AST 25 (10-42) IU/L ALT 20 (10-60) IU/L Alkaline Phosphatase 79 (42-121) IU/L C-Reactive Protein (0-1.0) mg/dL B-Natriuretic Peptide 145 H (5-100) pg/mL Total Protein 7.3 (6.7-8.2) g/dL Albumin 3.8 (3.2-5.5) g/dL Globulin 3.5 (2.1-4.2) g/dL Albumin/Globulin Ratio 1.1 (1.0-2.2) TSH (0.34-5.60) uIU/mL Urine Color Urine Clarity (CLEAR) Urine pH (5.0-7.5) PH Ur Specific [place] (1.002-1.030) Urine Protein (NEGATIVE) mg/dL Urine Glucose (UA) (NEGATIVE) mg/dL Urine Ketones (NEGATIVE) mg/dL Urine Occult Blood (NEGATIVE) Urine Nitrite (NEGATIVE) Urine Bilirubin (NEGATIVE) Urine Urobilinogen (NORMAL) E.U./dL Ur Leukocyte Esterase (NEGATIVE) Urine RBC (0-5) /HPF Urine WBC (0-3) /HPF Ur Squamous Epith Cells (<= Few) Urine Bacteria (None Seen) /HPF Urine Culture Comments Nasal Adenovirus (PCR) Nasal B. parapertussis DNA (PCR) Nasal Coronavir 229E PCR Nasal Coronavir HKU1 PCR Nasal Coronavir NL63 PCR Nasal Coronavir OC43 PCR Nasal Enterovir/Rhinovir PCR Nasal Influenza B PCR Nasal Influenza A PCR Nasal Parainfluen 1 PCR Nasal Parainfluen 2 PCR Nasal Parainfluen 3 PCR Nasal Parainfluen 4 PCR Nasal RSV (PCR) Nasal Screen MRSA (PCR) (NEGATIVE) Nasal B.pertussis DNA PCR Nasal C.pneumoniae (PCR) Gary Human Metapneumo PCR Nasal M.pneumoniae (PCR) Nasal SARS-CoV-2 (PCR) 10/28/21 Range/Units 16:00 WBC 4.2 L (4.8-10.8) x10^3/uL RBC 4.82 (4.70-6.10) 10^6/uL Hgb 14.1 (14.0-18.0) g/dL Hct 43.6 (42.0-52.0) % MCV 90.5 (80.0-94.0) fL MCH 29.3 (27.0-31.0) pg MCHC 32.3 (32.0-36.0) g/dL RDW 14.1 (12.0-15.0) % Plt Count 46 L (130-450) 10^3/uL MPV 10.8 (7.4-11.4) fL Neut # (Auto) 3.6 (1.5-6.6) 10^3/uL Lymph # (Auto) 0.5 L (1.5-3.5) 10^3/uL [place] # (Auto) 0.0 (0.0-1.0) 10^3/uL Eos # (Auto) 0.0 (0.0-0.7) 10^3/uL Baso # (Auto) 0.0 (0.0-0.1) 10^3/uL Absolute Nucleated RBC 0.00 x10^3/uL Total Counted Band Neuts % (Manual) (0 - 10) % Abnorm Lymph % (Manual) % Nucleated RBC % 0.0 /100WBC Neutrophils # (Manual) (1.5-6.6) 10^3/uL Lymphocytes # (Manual) (1.5-3.5) 10^3/uL Monocytes # (Manual) (0.0-1.0) 10^3/uL Eosinophils # (Manual) (0-0.7) 10^3/uL Basophils # (Manual) (0-0.1) 10^3/uL Differential Comment Platelet Estimate (NORMAL) RBC Morph Micro Appear (NORMAL) VBG pH (7.31-7.41) Ionized Calcium (1.15-1.33) mmol/L Sodium (135-145) mmol/L Potassium (3.5-5.0) mmol/L Chloride (101-111) mmol/L Carbon Dioxide (21-32) mmol/L Anion Gap (6-13) BUN (6-20) mg/dL Creatinine (0.6-1.2) mg/dL Estimated GFR (MDRD) (>89) Glucose (70-100) mg/dL Lactic Acid (0.5-2.2) mmol/L Calcium (8.5-10.3) mg/dL Phosphorus (2.5-4.6) mg/dL Magnesium (1.7-2.8) mg/dL Total Bilirubin (0.2-1.0) mg/dL AST (10-42) IU/L ALT (10-60) IU/L Alkaline Phosphatase (42-121) IU/L C-Reactive Protein (0-1.0) mg/dL B-Natriuretic Peptide (5-100) pg/mL Total Protein (6.7-8.2) g/dL Albumin (3.2-5.5) g/dL Globulin (2.1-4.2) g/dL Albumin/Globulin Ratio (1.0-2.2) TSH (0.34-5.60) uIU/mL Urine Color Urine Clarity (CLEAR) Urine pH (5.0-7.5) PH Ur Specific Harvey (1.002-1.030) Urine Protein (NEGATIVE) mg/dL Urine Glucose (UA) (NEGATIVE) mg/dL Urine Ketones (NEGATIVE) mg/dL Urine Occult Blood (NEGATIVE) Urine Nitrite (NEGATIVE) Urine Bilirubin (NEGATIVE) Urine Urobilinogen (NORMAL) E.U./dL Ur Leukocyte Esterase (NEGATIVE) Urine RBC (0-5) /HPF Urine WBC (0-3) /HPF Ur Squamous Epith Cells (<= Few) Urine Bacteria (None Seen) /HPF Urine Culture Comments Nasal Adenovirus (PCR) Nasal B. parapertussis DNA (PCR) Nasal Coronavir 229E PCR Nasal Coronavir HKU1 PCR Nasal Coronavir NL63 PCR Nasal Coronavir OC43 PCR Nasal Enterovir/Rhinovir PCR Nasal Influenza B PCR Nasal Influenza A PCR Nasal Parainfluen 1 PCR Nasal Parainfluen 2 PCR Nasal Parainfluen 3 PCR Nasal Parainfluen 4 PCR Nasal RSV (PCR) Nasal Screen MRSA (PCR) (NEGATIVE) Nasal B.pertussis DNA PCR Nasal C.pneumoniae (PCR) Gary Human Metapneumo PCR Nasal M.pneumoniae (PCR) Nasal SARS-CoV-2 (PCR) Sepsis Event Note (H) - Evaluation Current Stage of Sepsis: Severe sepsis Possible source of Sepsis: positive: Skin/soft tissue - Sepsis Criteria Sepsis Criteria: Recorded Temperature greater than 38.3C or Less than 36C, Recorded Heart Rate greater than 90 bpm, Recorded Respiratory Rate greater than 20, Respiratory: Increasing oxygen requirements, RECYCLABLE MATERIALS DISTRIBUTOR: altered consciousness (unrelated to primary neuro pathology), Hematologic: platelets < 100,000; INR > 1.5, or a PTT>60 seconds Assessment/Plan - Problem List (1) Severe sepsis Impression: This is improved. He has been afebrile today and is no longer tachycardic or tachypneic. His white blood cell count did increase he does have bands but his mentation is also improved. We will keep him on vancomycin and ceftriaxone until we have negative blood cultures. I suspect he will be bacteremic but bloo d cultures are still pending. Continue with daily CBC. (2) Encephalopathy Impression: This is significantly improved and nearly resolved. This was related to the sepsis. We will continue to treat the underlying infection with IV antibiotics. (3) Acute respiratory failure with hypoxia Impression: This is improved and he is now down to 1 L of oxygen. Suspect this was predominately related to the sepsis although x-ray did reveal pulmonary edema. We did not diurese him given the concern for sepsis. We will continue to wean his oxygen as tolerated. He may need diuresis at some point but he currently appears comfortable I suspect we can wean him to room air. (4) Cellulitis of right lower extremity Impression: This is ongoing and appears slightly improved compared to yesterday. This is a cause of his sepsis. CRP remains elevated but is trending down. White blood cell count is elevated he does have bands today. We will keep him on vancomycin and ceftriaxone. We will see if his blood cultures are positive otherwise we will look to de-escalate to ceftriaxone starting tomorrow. (5) Atrial fibrillation with RVR Impression: He is now rate controlled and we have resumed his home metoprolol and will discontinue the diltiazem. The RVR was due to the sepsis. He has a watchman device in place and is not on anticoagulation due to history of brain hemorrhage. (6) Thrombocytopenia Impression: His platelet count is stable in the 40s. 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 Suspect acute decline might be due to the sepsis. We will continue to monitor for signs of bleeding. No indication for transfusion at this time. (7) Leukemia Impression: He has a history of leukemia and is on ibrutinib. We are holding this given the active infection. He will need outpatient follow-up on discharge.
[2021-10-29 07:49] LABS: BILIRUBIN,DIRECT 0.5 mg/dL (0.1-0.5); BILIRUBIN,TOTAL 1.6 mg/dL (0.2-1.0); TOTAL PROTEIN 5.7 g/dL (6.7-8.2)
[2021-10-29] MEDS ORDERED: CALCIUM GLUCONATE IN NS 0.9% 2,000 MG/100 ML BAG IV ONE (07:58)
[2021-10-29] MEDS: INSULIN ASPART 300 UNIT/3 ML PEN SUBQ SCH ×4 (08:29→20:06)
[2021-10-29] MEDS ORDERED: cefTRIAXone 2 GM in SODIUM CHLORIDE 0.9% MINIBAG 100 ML IV SCH (09:00)
[2021-10-29] MEDS ORDERED: ENOXAPARIN 40 MG/0.4 ML SYRINGE SUBQ SCH (09:00)
[2021-10-29] MEDS: METOPROLOL SUCCINATE 50 MG TABLET PO SCH (09:24)
[2021-10-29] MEDS: MAGNESIUM OXIDE 400 MG TABLET PO SCH ×2 (09:24→14:39)
[2021-10-29] MEDS: ACETAMINOPHEN 325 MG TABLET PO PRN ×2 (09:24→15:19)
--- NOTE | 2021-10-29 09:28 | PHARMACY PROGRESS NOTE ---
- Best Possible Medication History Admit Date and Time: 10/28/21 9392 Processed by: Pharmacy Medication History completed: Yes Patient Interview: Completed Secondary Source(s): Written medication list As the person ultimately responsible for medication therapy, providers are able to order a medication from an existing home medication list in [facility] via the "Reconcile Routine" prior to Confirmation of that medication by marketing support assistant. Such practice is discouraged except when the physician, in their clinical judgment, deems that a medical need exists for a medication without regard to previous use.
[2021-10-29 12:46] LABS: ESTIMATED AVERAGE GLUCOSE 183 mg/dL (70-100)
[2021-10-29] MEDS: FUROSEMIDE 40 MG TABLET PO SCH (17:06)
[2021-10-29] MEDS: ATORVASTATIN 40 MG TABLET PO SCH (20:05)
[2021-10-29] MEDS: INSULIN GLARGINE 300 UNIT/3 ML PEN SUBQ SCH (20:06)
[2021-10-30] MEDS: SODIUM CHLORIDE FLUSH 0.9% 10 ML SYRINGE IVP SCH ×3 (01:25→17:48)
[2021-10-30] MEDS: VANCOMYCIN INJ 1 GM in SODIUM CHLORIDE 0.9% 250 ML IV SCH (04:18)
[2021-10-30] MEDS: FUROSEMIDE 40 MG TABLET PO SCH ×2 (05:31→14:06)
[2021-10-30 05:53] LABS: BASOPHILS % (AUTO) 0.3 %; EOSINOPHILS % (AUTO) 1.9 %; HCT - HEMATOCRIT 35.5 % (42.0-52.0); HGB - HEMOGLOBIN 11.6 g/dL (14.0-18.0); MEAN CORPUSCULAR HEMOGLOBIN 29.2 pg (27.0-31.0); MEAN CORPUSCULAR HGB CONC 32.7 g/dL (32.0-36.0); MEAN CORPUSCULAR VOLUME 89.4 fL (80.0-94.0); MEAN PLATELET VOLUME 12.1 fL (7.4-11.4); PLT - PLATELET COUNT 49 10^3/uL (130-450); RED BLOOD COUNT 3.97 10^6/uL (4.70-6.10); RED CELL DISTRIBUTION WIDTH 14.5 % (12.0-15.0); WHITE BLOOD COUNT 10.6 x10^3/uL (4.8-10.8)
[2021-10-30 06:00] LABS: CALCIUM, IONIZED 1.07 mmol/L (1.15-1.33); VBG PH 7.4 (7.31-7.41)
[2021-10-30] MEDS ORDERED: FUROSEMIDE 40 MG TABLET PO SCH (06:00)
[2021-10-30 06:10] LABS: ABNORMAL LYMPHS % (MANUAL) 0 %
[2021-10-30 06:24] LABS: CALCIUM 8.1 mg/dL (8.5-10.3); CREATININE 1.2 mg/dL (0.6-1.2); CRP - C-REACTIVE PROTEIN 23.5 mg/dL (0-1.0); MAGNESIUM 2.1 mg/dL (1.7-2.8); PHOSPHORUS 2.4 mg/dL (2.5-4.6); POTASSIUM 3.8 mmol/L (3.5-5.0)
[2021-10-30 06:38] LABS: BAND NEUTROPHILS % (MANUAL) 23 %; DIFFERENTIAL COMMENT MANUAL DIFFERENTIAL; LYMPHOCYTES # (MANUAL) 0.7 10^3/uL (1.5-3.5); LYMPHOCYTES % (MANUAL) 7 %; MONOCYTES # (MANUAL) 0.6 10^3/uL (0.0-1.0); NEUTROPHILS # (MANUAL) 9.2 10^3/uL (1.5-6.6); PLATELET ESTIMATE, MANUAL DECREASED (<130,000) (NORMAL); RBC MORPHOLOGY (MULTIPLE) NORMAL APPEARANCE (NORMAL)
--- NOTE | 2021-10-30 07:40 | PROVIDER PROGRESS NOTE ---
Subjective - Prog Note Date Prog Note Date: 10/30/21 - Subjective Subjective: He feels improved compared to admission. His right leg feels better. He has a little more of a cough today compared to before. Does not feel short of breath. Current Medications - Current Medications Current Medications: Active Medications Acetaminophen (Acetaminophen 325 Mg Tablet) 650 mg PO Q4HR PRN PRN Reason: Pain 1 to 4, or Fever Last Admin: 10/29/21 15:19 Dose: 650 mg Aspirin (Aspirin Ec 81 Mg Tablet) 81 mg PO DAILY [facility] Atorvastatin Calcium (Atorvastatin 40 Mg Tablet) 40 mg PO HS [facility] Last Admin: 10/29/21 20:05 Dose: 40 mg Calcium Carbonate/Glycine (Calcium Carbonate Chew 500 Mg Tablet) 1,250 mg PO Q4H [facility]; Protocol Stop: 10/30/21 18:01 Finasteride (Finasteride 5 Mg Tablet) 5 mg PO DAILY [facility] Furosemide (Furosemide 40 Mg Tablet) 40 mg PO BIDDIURETIC [facility] Last Admin: 10/30/21 05:31 Dose: 40 mg Vancomycin HCl 1 gm/ Sodium (Chloride) 250 mls @ 166.667 mls/hr IV Q12H [facility] Last Infusion: 10/30/21 07:43 Dose: Infused Cefepime HCl 2 gm/ Sodium (Chloride) 100 mls @ 200 mls/hr IV BID [facility] Insulin Aspart (Insulin Aspart 300 Unit/3 Ml Pen) 1 - 9 unit SUBQ 0800,1200,1700,2100 [facility]; Protocol Last Admin: 10/29/21 20:06 Dose: 1 unit Insulin Glargine (Insulin Glargine 300 Unit/3 Ml Pen) 10 unit SUBQ QPM [facility] Last Admin: 10/29/21 20:06 Dose: 10 unit Metoprolol Succinate (Metoprolol Succinate 50 Mg Tablet) 50 mg PO DAILY [facility] Last Admin: 10/29/21 09:24 Dose: 50 mg Ondansetron HCl (Ondansetron Odt 4 Mg Tablet) 4 mg TL Q6HR PRN PRN Reason: Nausea / Vomiting Ondansetron HCl (Ondansetron 4 Mg/2 Ml Vial) 4 mg IVP Q6HR PRN PRN Reason: Nausea / Vomiting Sodium Chloride (Sodium Chloride Flush 0.9% 10 Ml Syringe) 10 ml IVP 0100,0900,1700 [facility] Last Admin: 10/30/21 01:25 Dose: 10 ml Sodium Chloride (Sodium Chloride Flush 0.9% 10 Ml Syringe) 10 ml IVP PRN PRN PRN Reason: NEEDED PER PROVIDER ORDERS Sodium Phosphate (Neutra-Phos 250 Mg Tablet) 250 mg PO Q2H [facility]; Protocol Stop: 10/30/21 10:01 Tamsulosin HCl (Tamsulosin 0.4 Mg Capsule) 0.4 mg PO DAILY [facility] Acyclovir 400 mg PO TID 01/10/18 Alfuzosin HCl [Alfuzosin HCl ER] 10 mg PO DAILY 01/10/18 Atorvastatin Calcium 40 mg PO HS 01/10/18 Finasteride 5 mg PO DAILY 01/10/18 Ketotifen Fumarate 5 ml EACHEYE BID 01/10/18 Aspirin EC [Ecotrin] 81 mg PO DAILY 10/29/21 Furosemide [Lasix] 40 mg PO BIDDIURETIC 10/29/21 Ibrutinib [Imbruvica] 3 cap PO QDAC 10/29/21 Metformin HCl [Glumetza] 500 mg PO DAILY 10/29/21 Metoprolol Succinate [Toprol Xl] 25 mg PO DAILY 10/29/21 Mupirocin 2% Oint [Bactroban 2% Oint] 1 applic TOP DAILY 10/29/21 Objective - Vital Signs/Intake & Output Reviewed Vital Signs: Yes Vital Signs: Vital Signs Temp Pulse Resp BP Pulse Ox 10/30/21 06:53 37.4 C 95 19 130/72 94 10/30/21 06:00 97 24 117/63 94 10/30/21 05:00 89 24 122/73 90 L 10/30/21 04:00 101 H 27 H 125/72 91 L Intake & Output: Intake & Output 10/27/21 10/28/21 10/29/21 10/30/21 23:59 23:59 23:59 23:59 Intake Total 4592.358 4725.333 150 Output Total 2470 680 Balance 1415.667 139.333 -530 - Objective General Appearance: positive: No acute distress, Alert Eyes Bilateral: positive: Normal inspection, Conjunctivae nml ENT: positive: ENT inspection nml, Other (Nasal cannula in place.) Neck: positive: Nml inspection Respiratory: positive: No respiratory distress, Rhonchi. negative: Wheezes, Rales Cardiovascular: positive: Irregularly irregular. negative: Tachycardia, Systolic murmur Abdomen: positive: Non-tender, No distention. negative: Tenderness Skin: positive: Warm, Dry, Other (The erythema right lower extremity is significantly improved and now nearly resolved. Chronic venous stasis changes present bilaterally) Extremities: positive: Pedal edema (+1 edema in bilateral lower extremities.) Neurologic/Psychiatric: negative: Disoriented to person, Disoriented to place - Lab Results Fish Bones: 10/30/21 04:06 10/30/21 04:06 Other Labs: Lab Results x24hrs 10/30/21 10/30/21 10/30/21 Range/Units 04:06 04:06 04:06 WBC 10.6 (4.8-10.8) x10^3/uL RBC 3.97 L (4.70-6.10) 10^6/uL Hgb 11.6 L (14.0-18.0) g/dL Hct 35.5 L (42.0-52.0) % MCV 89.4 (80.0-94.0) fL MCH 29.2 (27.0-31.0) pg MCHC 32.7 (32.0-36.0) g/dL RDW 14.5 (12.0-15.0) % Plt Count 49 L (130-450) 10^3/uL MPV 12.1 H (7.4-11.4) fL Neut # (Auto) Not Reportable Lymph # (Auto) Not Reportable [place] # (Auto) Not Reportable Eos # (Auto) Not Reportable Baso # (Auto) Not Reportable Absolute Nucleated RBC Not Reportable Total Counted 100 Band Neuts % (Manual) 23 H (0 - 10) % Abnorm Lymph % (Manual) 0 % Nucleated RBC % Not Reportable Neutrophils # (Manual) 9.2 H (1.5-6.6) 10^3/uL Lymphocytes # (Manual) 0.7 L (1.5-3.5) 10^3/uL Monocytes # (Manual) 0.6 (0.0-1.0) 10^3/uL Eosinophils # (Manual) 0.0 (0-0.7) 10^3/uL Basophils # (Manual) 0.0 (0-0.1) 10^3/uL Differential Comment MANUAL DIFFERENTIAL Platelet Estimate DECREASED (<130,000) (NORMAL) RBC Morph Micro Appear NORMAL APPEARANCE (NORMAL) VBG pH 7.400 (7.31-7.41) Ionized Calcium 1.07 L (1.15-1.33) mmol/L Sodium 132 L (135-145) mmol/L Potassium 3.8 (3.5-5.0) mmol/L Chloride 96 L (101-111) mmol/L Carbon Dioxide 28 (21-32) mmol/L Anion Gap 8.0 (6-13) BUN 25 H (6-20) mg/dL Creatinine 1.2 (0.6-1.2) mg/dL Estimated GFR (MDRD) 59 L (>89) Glucose 160 H (70-100) mg/dL Estimat Average Glucose (70-100) mg/dL Hemoglobin A1c % (4.27-6.07) % Calcium 8.1 L (8.5-10.3) mg/dL Phosphorus 2.4 L (2.5-4.6) mg/dL Magnesium 2.1 (1.7-2.8) mg/dL Total Bilirubin (0.2-1.0) mg/dL Direct Bilirubin (0.1-0.5) mg/dL AST (10-42) IU/L ALT (10-60) IU/L Alkaline Phosphatase (42-121) IU/L C-Reactive Protein 23.5 H (0-1.0) mg/dL Total Protein (6.7-8.2) g/dL Albumin (3.2-5.5) g/dL Globulin (2.1-4.2) g/dL 10/29/21 10/29/21 Range/Units 04:26 04:26 WBC (4.8-10.8) x10^3/uL RBC (4.70-6.10) 10^6/uL Hgb (14.0-18.0) g/dL Hct (42.0-52.0) % MCV (80.0-94.0) fL MCH (27.0-31.0) pg MCHC (32.0-36.0) g/dL RDW (12.0-15.0) % Plt Count (130-450) 10^3/uL MPV (7.4-11.4) fL Neut # (Auto) Lymph # (Auto) [place] # (Auto) Eos # (Auto) Baso # (Auto) Absolute Nucleated RBC Total Counted Band Neuts % (Manual) (0 - 10) % Abnorm Lymph % (Manual) % Nucleated RBC % Neutrophils # (Manual) (1.5-6.6) 10^3/uL Lymphocytes # (Manual) (1.5-3.5) 10^3/uL Monocytes # (Manual) (0.0-1.0) 10^3/uL Eosinophils # (Manual) (0-0.7) 10^3/uL Basophils # (Manual) (0-0.1) 10^3/uL Differential Comment Platelet Estimate (NORMAL) RBC Morph Micro Appear (NORMAL) VBG pH (7.31-7.41) Ionized Calcium (1.15-1.33) mmol/L Sodium (135-145) mmol/L Potassium (3.5-5.0) mmol/L Chloride (101-111) mmol/L Carbon Dioxide (21-32) mmol/L Anion Gap (6-13) BUN (6-20) mg/dL Creatinine (0.6-1.2) mg/dL Estimated GFR (MDRD) (>89) Glucose (70-100) mg/dL Estimat Average Glucose 183 H (70-100) mg/dL Hemoglobin A1c % 8.0 H (4.27-6.07) % Calcium (8.5-10.3) mg/dL Phosphorus (2.5-4.6) mg/dL Magnesium (1.7-2.8) mg/dL Total Bilirubin 1.6 H (0.2-1.0) mg/dL Direct Bilirubin 0.5 (0.1-0.5) mg/dL AST 25 (10-42) IU/L ALT 15 (10-60) IU/L Alkaline Phosphatase 57 (42-121) IU/L C-Reactive Protein (0-1.0) mg/dL Total Protein 5.7 L (6.7-8.2) g/dL Albumin 3.0 L (3.2-5.5) g/dL Globulin 2.7 (2.1-4.2) g/dL Sepsis Event Note (H) - Evaluation Current Stage of Sepsis: Severe sepsis Possible source of Sepsis: positive: Skin/soft tissue - Sepsis Criteria Sepsis Criteria: Recorded Temperature greater than 38.3C or Less than 36C, Recorded Heart Rate greater than 90 bpm, Recorded Respiratory Rate greater than 20, Respiratory: Increasing oxygen requirements, TIRE SPECIALIST: altered consciousness (unrelated to primary neuro pathology), Hematologic: platelets < 100,000; INR > 1.5, or a PTT>60 seconds Assessment/Plan - Problem List (1) Severe sepsis Impression: This is still ongoing. He had been afebrile yesterday but is now febrile again this morning. He continues to have bands present and his CRP has increased today. Although his MRSA screen was negative, we will keep him on vancomycin. We will discontinue ceftriaxone and start cefepime IV. His blood pressure has been stable so we will hold off on IV fluids. We have resumed his oral diuretics given he was hypoxic on admission and x-ray revealed pulmonary edema. Blood cultures have been negative to date. Given the return of the fever today as well as his tachypnea and increasing bands, we will keep him in the ICU for at least one more day. (2) Acute respiratory failure with hypoxia Impression: This is improved she is down to 1 L of oxygen. This is likely due to sepsis and component of heart failure. We will resume his oral diuretics today. Given his new cough and fever, we will repeat a chest x-ray to look for any possible new infiltrate. (3) Cellulitis of right lower extremity Impression: This is believed to be the cause of his sepsis. Although he was febrile today, his right lower extremity looks much improved as there is less erythema and is not nearly as warm to touch. We did broaden his antibiotics to vancomycin and cefepime given his fever but we will look to de-escalate as soon as possible. Continue with daily CBC and CRP. We will also order a duplex to look for DVT. (4) Atrial fibrillation with RVR Impression: His heart rate is better controlled after he resumed his home metoprolol. Rates have been stable this time. He has a watchman device in place. (5) Thrombocytopenia Impression: This is slightly improved to 49 today. This may be due to the use of ibrutinib or due to the sepsis. We will continue to check CBC daily. No indication for transfusion. (6) Leukemia Impression: He has a history of CLL and is on ibrutinib. We are holding this given the active infection. (7) Type 2 diabetes mellitus Impression: His A1c is 8%. He is on metformin at home. We will have him on Lantus 10 units in the evening here plus sliding scale. (8) Encephalopathy Impression: This was secondary to sepsis and is now resolved.
[2021-10-30] MEDS ORDERED: IBRUTINIB 140 MG PO SCH (08:00)
[2021-10-30] MEDS: INSULIN ASPART 300 UNIT/3 ML PEN SUBQ SCH ×4 (08:23→20:47)
[2021-10-30] MEDS: ACETAMINOPHEN 325 MG TABLET PO PRN (08:45)
[2021-10-30] MEDS: ASPIRIN EC 81 MG TABLET PO SCH (08:45)
[2021-10-30] MEDS: METOPROLOL SUCCINATE 50 MG TABLET PO SCH (08:45)
[2021-10-30] MEDS: TAMSULOSIN 0.4 MG CAPSULE PO SCH (08:46)
[2021-10-30] MEDS: NEUTRA-PHOS 250 MG TABLET PO SCH ×2 (08:46→10:19)
[2021-10-30] MEDS: FINASTERIDE 5 MG TABLET PO SCH (08:46)
[2021-10-30] MEDS: CEFEPIME 2 GM in SODIUM CHLORIDE 0.9% MINIBAG 100 ML IV SCH ×2 (08:55→20:47)
--- NOTE | 2021-10-30 09:38 | XRAY Report ---
PROCEDURE: Chest 1 View X-Ray INDICATIONS: Worsening cough. New fever. COMMENTS: cough, new fever PRIORS: 10/28/21 TECHNIQUE: One view of the chest was acquired. COMPARISON: 03/23/2021, 10/28/2021. FINDINGS: Surgical changes and devices: None. Lungs and pleura: No pleural effusions or pneumothorax. Bibasilar linear airspace opacities are c onsistent with chronic atelectasis and are worse compared to prior x-rays consistent with atelectasis or superimposed pneumonia. Mediastinum: Mediastinal contours appear normal. Heart size is normal. Bones and chest wall: No suspicious bony lesions. Overlying soft tissues appear unremarkable. IMPRESSION: 1. Increased interstitial markings are unchanged compared to prior x-rays and are likely chronic. 2. Bibasilar infiltrates are worse compared to prior x-rays consistent with atelectasis and/or pneumo zacarias. Reviewed by: Eugene Atkins on 10/30/2021 8:37 AM [facility] Approved by: Eugene Atkins on 10/30/2021 8:37 AM [facility] Station ID: [id number]
--- NOTE | 2021-10-30 12:01 | Ultrasound Report ---
PROCEDURE: Duplex Ext Veins Right INDICATIONS: Edema. Pain. DVT? TECHNIQUE: Real-time imaging, as well as color and pulse Doppler interrogation, were performed of the lower extr emity deep veins from the inguinal ligament to the popliteal fossa. COMPARISON: None. FINDINGS: The deep veins are normally compressible, and free of intraluminal thrombus. Color and pu lse Doppler demonstrate normal phasic intraluminal flow. There is normal augmentation response to di stal compression maneuver. IMPRESSION: No deep venous thrombosis. Reviewed by: Sarah Lewis MD on 10/30/2021 11:59 AM PDT Approved by: Sarah Lewis MD on 10/30/2021 11:59 AM PDT Station ID: [id number]
[2021-10-30] MEDS: CALCIUM CARBONATE CHEW 500 MG TABLET PO SCH ×2 (14:05→17:42)
[2021-10-30] MEDS: CARBOXYMETHYLCELLULOSE OPHTH DROPS EACHEYE PRN ×2 (14:07→21:18)
[2021-10-30 16:11] LABS: VANCOMYCIN,TROUGH 11.9 ug/mL (10.0-20.0)
[2021-10-30] MEDS ORDERED: VANCOMYCIN INJ 1.5 GM in SODIUM CHLORIDE 0.9% 250 ML IV SCH (16:49)
[2021-10-30] MEDS: VANCOMYCIN INJ 1.5 GM in SODIUM CHLORIDE 0.9% 500 ML IV SCH (17:40)
[2021-10-30] MEDS: ATORVASTATIN 40 MG TABLET PO SCH (20:47)
[2021-10-30] MEDS: INSULIN GLARGINE 300 UNIT/3 ML PEN SUBQ SCH (20:47)
[2021-10-31] MEDS: SODIUM CHLORIDE FLUSH 0.9% 10 ML SYRINGE IVP SCH ×3 (00:37→17:47)
[2021-10-31 05:47] LABS: BASOPHILS % (AUTO) 0.3 %; EOSINOPHILS # (AUTO) 0.5 10^3/uL (0.0-0.7); EOSINOPHILS % (AUTO) 4.2 %; HCT - HEMATOCRIT 36.5 % (42.0-52.0); HGB - HEMOGLOBIN 11.7 g/dL (14.0-18.0); LYMPHOCYTES # (AUTO) 1.2 10^3/uL (1.5-3.5); LYMPHOCYTES % (AUTO) 11.3 %; MEAN CORPUSCULAR HEMOGLOBIN 29.2 pg (27.0-31.0); MEAN CORPUSCULAR HGB CONC 32.1 g/dL (32.0-36.0); MEAN PLATELET VOLUME 12.4 fL (7.4-11.4); MONOCYTES # (AUTO) 0.5 10^3/uL (0.0-1.0); MONOCYTES % (AUTO) 4.7 %; NEUTROPHILS # (AUTO) 8.5 10^3/uL (1.5-6.6); NEUTROPHILS % (AUTO) 78.7 %; PLT - PLATELET COUNT 66 10^3/uL (130-450); RED BLOOD COUNT 4.01 10^6/uL (4.70-6.10); RED CELL DISTRIBUTION WIDTH 14.6 % (12.0-15.0); WHITE BLOOD COUNT 10.9 x10^3/uL (4.8-10.8)
[2021-10-31] MEDS: VANCOMYCIN INJ 1.5 GM in SODIUM CHLORIDE 0.9% 500 ML IV SCH (05:49)
[2021-10-31] MEDS: FUROSEMIDE 40 MG TABLET PO SCH ×2 (05:49→13:19)
[2021-10-31 06:30] LABS: CALCIUM 8.3 mg/dL (8.5-10.3); CREATININE 0.9 mg/dL (0.6-1.2); CRP - C-REACTIVE PROTEIN 22.3 mg/dL (0-1.0)
[2021-10-31] MEDS ORDERED: POTASSIUM CHLORIDE 20 MEQ TABLET PO ONE (07:18)
--- NOTE | 2021-10-31 07:19 | PROVIDER PROGRESS NOTE ---
Subjective - Prog Note Date Prog Note Date: 10/31/21 - Subjective Subjective: He reports feeling well. Has no shortness of breath. He was able to ambulate yesterday in the hallway a little bit. Feels like his right leg redness is improved. Current Medications - Current Medications Current Medications: Active Medications Acetaminophen (Acetaminophen 325 Mg Tablet) 650 mg PO Q4HR PRN PRN Reason: Pain 1 to 4, or Fever Last Admin: 10/30/21 08:45 Dose: 650 mg Aspirin (Aspirin Ec 81 Mg Tablet) 81 mg PO DAILY [facility] Last Admin: 10/30/21 08:45 Dose: 81 mg Atorvastatin Calcium (Atorvastatin 40 Mg Tablet) 40 mg PO HS [facility] Last Admin: 10/30/21 20:47 Dose: 40 mg Carboxymethylcellulose (Carboxymethylcellulose Ophth Drops) 1 drops EACHEYE PRN PRN PRN Reason: Dry Eye Last Admin: 10/30/21 21:18 Dose: 1 drops Finasteride (Finasteride 5 Mg Tablet) 5 mg PO DAILY [facility] Last Admin: 10/30/21 08:46 Dose: 5 mg Furosemide (Furosemide 40 Mg Tablet) 40 mg PO BIDDIURETIC [facility] Last Admin: 10/31/21 05:49 Dose: 40 mg Cefazolin Sodium 2 gm/ Sodium (Chloride) 100 mls @ 200 mls/hr IV Q8H [facility] Insulin Aspart (Insulin Aspart 300 Unit/3 Ml Pen) 1 - 9 unit SUBQ 0800,1200,1700,2100 [facility]; Protocol Last Admin: 10/30/21 20:47 Dose: 3 unit Insulin Glargine (Insulin Glargine 300 Unit/3 Ml Pen) 10 unit SUBQ QPM [facility] Last Admin: 10/30/21 20:47 Dose: 10 unit Metoprolol Succinate (Metoprolol Succinate 50 Mg Tablet) 50 mg PO DAILY [facility] Last Admin: 10/30/21 08:45 Dose: 50 mg Ondansetron HCl (Ondansetron Odt 4 Mg Tablet) 4 mg TL Q6HR PRN PRN Reason: Nausea / Vomiting Ondansetron HCl (Ondansetron 4 Mg/2 Ml Vial) 4 mg IVP Q6HR PRN PRN Reason: Nausea / Vomiting Sodium Chloride (Sodium Chloride Flush 0.9% 10 Ml Syringe) 10 ml IVP 0100,0900,1700 [facility] Last Admin: 10/31/21 00:37 Dose: 10 ml Sodium Chloride (Sodium Chloride Flush 0.9% 10 Ml Syringe) 10 ml IVP PRN PRN PRN Reason: NEEDED PER PROVIDER ORDERS Tamsulosin HCl (Tamsulosin 0.4 Mg Capsule) 0.4 mg PO DAILY [facility] Last Admin: 10/30/21 08:46 Dose: 0.4 mg Acyclovir 400 mg PO TID 01/10/18 Alfuzosin HCl [Alfuzosin HCl ER] 10 mg PO DAILY 01/10/18 Atorvastatin Calcium 40 mg PO HS 01/10/18 Finasteride 5 mg PO DAILY 01/10/18 Ketotifen Fumarate 5 ml EACHEYE BID 01/10/18 Aspirin EC [Ecotrin] 81 mg PO DAILY 10/29/21 Furosemide [Lasix] 40 mg PO BIDDIURETIC 10/29/21 Ibrutinib [Imbruvica] 3 cap PO QDAC 10/29/21 Metformin HCl [Glumetza] 500 mg PO DAILY 10/29/21 Metoprolol Succinate [Toprol Xl] 25 mg PO DAILY 10/29/21 Mupirocin 2% Oint [Bactroban 2% Oint] 1 applic TOP DAILY 10/29/21 Objective - Vital Signs/Intake & Output Reviewed Vital Signs: Yes Vital Signs: Vital Signs x48h Temp Pulse Resp BP Pulse Ox 10/31/21 05:00 36.8 C 86 18 119/61 96 10/31/21 00:01 36.4 C L 73 18 110/77 95 Intake & Output: Intake & Output 10/28/21 10/29/21 10/30/21 10/31/21 23:59 23:59 23:59 23:59 Intake Total 3478.317 8295.333 1700 50 Output Total 2470 2300 500 Balance 1415.667 139.333 -600 -450 - Objective General Appearance: positive: No acute distress, Alert Eyes Bilateral: positive: Normal inspection, Conjunctivae nml ENT: positive: ENT inspection nml Neck: positive: Nml inspection Respiratory: positive: No respiratory distress. negative: Wheezes, Rales, Rhonchi Cardiovascular: positive: Irregularly irregular. negative: Tachycardia Skin: positive: Warm, Dry, Other (Right lower extremity still erythematous and warm to touch but this is significantly improved. The area is now just superior to the ankle up to the mid penny.) Extremities: positive: Pedal edema (+2 pitting edema in the bilateral lower extremities) Neurologic/Psychiatric: negative: Disoriented to person, Disoriented to place - Lab Results Fish Bones: 10/31/21 04:03 10/31/21 04:03 Other Labs: Lab Results x24hrs 10/31/21 10/31/21 10/30/21 Range/Units 04:03 04:03 15:57 WBC 10.9 H (4.8-10.8) x10^3/uL RBC 4.01 L (4.70-6.10) 10^6/uL Hgb 11.7 L (14.0-18.0) g/dL Hct 36.5 L (42.0-52.0) % MCV 91.0 (80.0-94.0) fL MCH 29.2 (27.0-31.0) pg MCHC 32.1 (32.0-36.0) g/dL RDW 14.6 (12.0-15.0) % Plt Count 66 L (130-450) 10^3/uL MPV 12.4 H (7.4-11.4) fL Neut # (Auto) 8.5 H (1.5-6.6) 10^3/uL Lymph # (Auto) 1.2 L (1.5-3.5) 10^3/uL [place] # (Auto) 0.5 (0.0-1.0) 10^3/uL Eos # (Auto) 0.5 (0.0-0.7) 10^3/uL Baso # (Auto) 0.0 (0.0-0.1) 10^3/uL Absolute Nucleated RBC 0.00 x10^3/uL Nucleated RBC % 0.0 /100WBC Sodium 139 (135-145) mmol/L Potassium 3.0 L (3.5-5.0) mmol/L Chloride 101 (101-111) mmol/L Carbon Dioxide 29 (21-32) mmol/L Anion Gap 9.0 (6-13) BUN 21 H (6-20) mg/dL Creatinine 0.9 (0.6-1.2) mg/dL Estimated GFR (MDRD) 82 L (>89) Glucose 111 H (70-100) mg/dL Calcium 8.3 L (8.5-10.3) mg/dL C-Reactive Protein 22.3 H (0-1.0) mg/dL Procalcitonin (<0.5) ng/mL Last Dose Date 10/30/21 Last Dose Time 0720 Vancomycin Trough 11.9 (10.0-20.0) ug/mL 10/30/21 Range/Units 04:06 WBC (4.8-10.8) x10^3/uL RBC (4.70-6.10) 10^6/uL Hgb (14.0-18.0) g/dL Hct (42.0-52.0) % MCV (80.0-94.0) fL MCH (27.0-31.0) pg MCHC (32.0-36.0) g/dL RDW (12.0-15.0) % Plt Count (130-450) 10^3/uL MPV (7.4-11.4) fL Neut # (Auto) (1.5-6.6) 10^3/uL Lymph # (Auto) (1.5-3.5) 10^3/uL [place] # (Auto) (0.0-1.0) 10^3/uL Eos # (Auto) (0.0-0.7) 10^3/uL Baso # (Auto) (0.0-0.1) 10^3/uL Absolute Nucleated RBC x10^3/uL Nucleated RBC % /100WBC Sodium (135-145) mmol/L Potassium (3.5-5.0) mmol/L Chloride (101-111) mmol/L Carbon Dioxide (21-32) mmol/L Anion Gap (6-13) BUN (6-20) mg/dL Creatinine (0.6-1.2) mg/dL Estimated GFR (MDRD) (>89) Glucose (70-100) mg/dL Calcium (8.5-10.3) mg/dL C-Reactive Protein (0-1.0) mg/dL Procalcitonin 2.08 H* (<0.5) ng/mL Last Dose Date Last Dose Time Vancomycin Trough (10.0-20.0) ug/mL ABX Reporting Has patient been on IV antibiotics over the past 48 hours?: Yes Sepsis Event Note (H) - Evaluation Current Stage of Sepsis: Resolved Possible source of Sepsis: positive: Skin/soft tissue - Sepsis Criteria Sepsis Criteria: Recorded Temperature greater than 38.3C or Less than 36C, Recorded Heart Rate greater than 90 bpm, Recorded Respiratory Rate greater than 20, Respiratory: Increasing oxygen requirements, AUDIOVISUAL PRODUCTION SPECIALIST: altered consciousness (unrelated to primary neuro pathology), Hematologic: platelets < 100,000; INR > 1.5, or a PTT>60 seconds Assessment/Plan - Problem List (1) Severe sepsis Impression: This is now resolved. This is secondary to the right lower extremity cellulitis. He has not been afebrile for more than 24 hours. His white blood cell count is little increased today but he no longer has bands present. His blood count is also improving. We will de-escalate antibiotics to cefazolin and doxycycline. If he continues to improve throughout the day tomorrow then we will switch to oral amoxicillin and doxycycline tomorrow in preparation for discharge. We did transfer him out of the ICU yesterday evening given he was hemodynamically stable. (2) Acute respiratory failure with hypoxia Impression: This is now resolved. This was likely secondary to sepsis and a component of pulmonary edema. He is now down to room air and we will resume his home oral diuretics. (3) Cellulitis of right lower extremity Impression: This was the cause of his sepsis. His right lower extremity appears improved with regards to erythema. His white blood cell count is slightly increased today but he no longer has bands present. His CRP is also trending down. Blood cultures have been negative to date. We will discontinue vancomycin and cefepime. We will start her on cefazolin and doxycycline IV. If he remains afebrile and continues to improve we will switch to oral amoxicillin and doxycycline tomorrow with plan to discharge the following day. We will likely treat for at least 10 days maybe even up to 2 weeks given he has history of recurrent cellulitis. (4) Atrial fibrillation with RVR Impression: This was secondary to the sepsis and has resolved. He remains rate controlled and is back on his home metoprolol. He has a watchman device in place. (5) Thrombocytopenia Impression: This continues to improve and is now in the 60s. This may be due to sepsis or the use of ibrutinib. Continue with daily CBC. (6) Leukemia Impression: He has a history of CLL and is on ibrutinib. We are holding this given the active infection (7) Type 2 diabetes mellitus Impression: His blood glucose better controlled since we started Lantus 10 units in the evening. Continue with sliding scale. His A1c was 8% and we did discuss increasing his metformin dose on discharge or considering the use of insulin. (8) BPH (benign prostatic hyperplasia) Impression: We have continued his home medications. He had urinary retention on admission and a Saucedo catheter was placed. We will attempt a voiding trial today. If he fails a voiding trial and the catheter will be placed again and he will need outpatient follow-up with urology. (9) Encephalopathy Impression: This was secondary to sepsis and is now resolved.
[2021-10-31] MEDS ORDERED: ceFAZolin 2 GM in SODIUM CHLORIDE 0.9% MINIBAG 100 ML IV SCH (08:00)
[2021-10-31] MEDS: METOPROLOL SUCCINATE 25 MG TABLET PO SCH (08:59)
[2021-10-31] MEDS: TAMSULOSIN 0.4 MG CAPSULE PO SCH (08:59)
[2021-10-31] MEDS: ASPIRIN EC 81 MG TABLET PO SCH (08:59)
[2021-10-31] MEDS: FINASTERIDE 5 MG TABLET PO SCH (08:59)
[2021-10-31] MEDS: INSULIN ASPART 300 UNIT/3 ML PEN SUBQ SCH ×4 (09:00→21:34)
[2021-10-31] MEDS: DOXYCYCLINE INJ 100 MG in SODIUM CHLORIDE 0.9% MINIBAG 100 ML IV SCH ×2 (09:03→21:33)
[2021-10-31] MEDS ORDERED: SODIUM CHLORIDE 0.9% IV ONE (09:04)
[2021-10-31] MEDS: CEFAZOLIN SODIUM IN 0.9 % NACL 2 GM/50 ML BAG IV SCH ×2 (10:42→17:46)
[2021-10-31] MEDS: ACYCLOVIR 200 MG CAPSULE PO SCH ×2 (13:17→21:34)
[2021-10-31] MEDS: ATORVASTATIN 40 MG TABLET PO SCH (21:34)
[2021-10-31] MEDS: INSULIN GLARGINE 300 UNIT/3 ML PEN SUBQ SCH (21:35)
[2021-11-01] MEDS: SODIUM CHLORIDE FLUSH 0.9% 10 ML SYRINGE IVP SCH ×3 (02:08→17:14)
[2021-11-01] MEDS: CEFAZOLIN SODIUM IN 0.9 % NACL 2 GM/50 ML BAG IV SCH (02:10)
[2021-11-01] MEDS: ACYCLOVIR 200 MG CAPSULE PO SCH ×3 (05:16→21:17)
[2021-11-01] MEDS: FUROSEMIDE 40 MG TABLET PO SCH ×2 (05:16→14:03)
[2021-11-01 05:48] LABS: BASOPHILS % (AUTO) 0.2 %; EOSINOPHILS # (AUTO) 0.4 10^3/uL (0.0-0.7); EOSINOPHILS % (AUTO) 4.5 %; HCT - HEMATOCRIT 36.8 % (42.0-52.0); HGB - HEMOGLOBIN 11.9 g/dL (14.0-18.0); LYMPHOCYTES # (AUTO) 1.2 10^3/uL (1.5-3.5); LYMPHOCYTES % (AUTO) 15.3 %; MEAN CORPUSCULAR HEMOGLOBIN 29.1 pg (27.0-31.0); MEAN CORPUSCULAR HGB CONC 32.3 g/dL (32.0-36.0); MEAN PLATELET VOLUME 12.1 fL (7.4-11.4); MONOCYTES # (AUTO) 0.4 10^3/uL (0.0-1.0); MONOCYTES % (AUTO) 4.8 %; NEUTROPHILS % (AUTO) 74.6 %; PLT - PLATELET COUNT 83 10^3/uL (130-450); RED BLOOD COUNT 4.09 10^6/uL (4.70-6.10); RED CELL DISTRIBUTION WIDTH 14.3 % (12.0-15.0); WHITE BLOOD COUNT 8.1 x10^3/uL (4.8-10.8)
[2021-11-01 06:02] LABS: CALCIUM 8.3 mg/dL (8.5-10.3); POTASSIUM 3.5 mmol/L (3.5-5.0)
--- NOTE | 2021-11-01 07:48 | PROVIDER PROGRESS NOTE ---
Subjective - Prog Note Date Prog Note Date: 11/01/21 - Subjective Subjective: He reports feeling well. Denies any dyspnea. He had difficulty voiding yesterday after the Saucedo catheter was removed. It was placed again overnight. Current Medications - Current Medications Current Medications: Active Medications Acetaminophen (Acetaminophen 325 Mg Tablet) 650 mg PO Q4HR PRN PRN Reason: Pain 1 to 4, or Fever Last Admin: 10/30/21 08:45 Dose: 650 mg Acyclovir (Acyclovir 200 Mg Capsule) 400 mg PO TID [facility] Last Admin: 11/01/21 05:16 Dose: 400 mg Amoxicillin (Amoxicillin 250 Mg Capsule) 500 mg PO TID [facility] Last Admin: 11/01/21 08:48 Dose: 500 mg Aspirin (Aspirin Ec 81 Mg Tablet) 81 mg PO DAILY [facility] Last Admin: 11/01/21 08:45 Dose: 81 mg Atorvastatin Calcium (Atorvastatin 40 Mg Tablet) 40 mg PO HS [facility] Last Admin: 10/31/21 21:34 Dose: 40 mg Carboxymethylcellulose (Carboxymethylcellulose Ophth Drops) 1 drops EACHEYE PRN PRN PRN Reason: Dry Eye Last Admin: 10/30/21 21:18 Dose: 1 drops Doxycycline Hyclate (Doxycycline 100 Mg Tablet) 100 mg PO BID [facility] Last Admin: 11/01/21 08:45 Dose: 100 mg Finasteride (Finasteride 5 Mg Tablet) 5 mg PO DAILY [facility] Last Admin: 11/01/21 08:45 Dose: 5 mg Furosemide (Furosemide 40 Mg Tablet) 40 mg PO BIDDIURETIC [facility] Last Admin: 11/01/21 05:16 Dose: 40 mg Insulin Aspart (Insulin Aspart 300 Unit/3 Ml Pen) 1 - 9 unit SUBQ 0800,1200,1700,2100 [facility]; Protocol Last Admin: 11/01/21 07:50 Dose: Not Given Insulin Glargine (Insulin Glargine 300 Unit/3 Ml Pen) 10 unit SUBQ QPM [facility] Last Admin: 10/31/21 21:35 Dose: 10 unit Metoprolol Succinate (Metoprolol Succinate 25 Mg Tablet) 25 mg PO DAILY [facility] Last Admin: 11/01/21 08:44 Dose: 25 mg Ondansetron HCl (Ondansetron Odt 4 Mg Tablet) 4 mg TL Q6HR PRN PRN Reason: Nausea / Vomiting Ondansetron HCl (Ondansetron 4 Mg/2 Ml Vial) 4 mg IVP Q6HR PRN PRN Reason: Nausea / Vomiting Sodium Chloride (Sodium Chloride Flush 0.9% 10 Ml Syringe) 10 ml IVP 0100, 0900,1700 [facility] Last Admin: 11/01/21 08:46 Dose: 10 ml Sodium Chloride (Sodium Chloride Flush 0.9% 10 Ml Syringe) 10 ml IVP PRN PRN PRN Reason: NEEDED PER PROVIDER ORDERS Last Admin: 11/01/21 08:46 Dose: 10 ml Tamsulosin HCl (Tamsulosin 0.4 Mg Capsule) 0.4 mg PO DAILY [facility] Last Admin: 11/01/21 08:45 Dose: 0.4 mg Acyclovir 400 mg PO TID 01/10/18 Alfuzosin HCl [Alfuzosin HCl ER] 10 mg PO DAILY 01/10/18 Atorvastatin Calcium 40 mg PO HS 01/10/18 Finasteride 5 mg PO DAILY 01/10/18 Ketotifen Fumarate 5 ml EACHEYE BID 01/10/18 Aspirin EC [Ecotrin] 81 mg PO DAILY 10/29/21 Furosemide [Lasix] 40 mg PO BIDDIURETIC 10/29/21 Ibrutinib [Imbruvica] 3 cap PO QDAC 10/29/21 Metformin HCl [Glumetza] 500 mg PO DAILY 10/29/21 Metoprolol Succinate [Toprol Xl] 25 mg PO DAILY 10/29/21 Mupirocin 2% Oint [Bactroban 2% Oint] 1 applic TOP DAILY 10/29/21 Objective - Vital Signs/Intake & Output Reviewed Vital Signs: Yes Vital Signs: Vital Signs x48h Temp Pulse Resp BP Pulse Ox 11/01/21 05:00 36.6 C 70 20 124/67 99 Intake & Output: Intake & Output 10/29/21 10/30/21 10/31/21 11/01/21 23:59 23:59 23:59 23:59 Intake Total 2609.333 1700 1999 100 Output Total 2470 2300 2100 1999 Balance 139.333 -600 -100 -1900 - Objective General Appearance: positive: No acute distress, Alert Eyes Bilateral: positive: Normal inspection ENT: positive: ENT inspection nml Neck: positive: Nml inspection Respiratory: positive: No respiratory distress. negative: Wheezes, Rales Cardiovascular: positive: Irregularly irregular. negative: Tachycardia Abdomen: positive: Non-tender, No distention. negative: Tenderness Skin: positive: Other (There is still mild erythema over the right lower extremity from the mid penny down to the ankle. It is not tender and is only mildly warm to touch. The size of the erythema is significantly decreased.) Extremities: positive: Pedal edema (+1 pitting edema bilateral lower extremities) Neurologic/Psychiatric: negative: Disoriented to person, Disoriented to place - Lab Results Fish Bones: 11/01/21 05:23 11/01/21 05:23 Other Labs: Lab Results x24hrs 11/01/21 11/01/21 Range/Units 05:23 05:23 WBC 8.1 (4.8-10.8) x10^3/uL RBC 4.09 L (4.70-6.10) 10^6/uL Hgb 11.9 L (14.0-18.0) g/dL Hct 36.8 L (42.0-52.0) % MCV 90.0 (80.0-94.0) fL MCH 29.1 (27.0-31.0) pg MCHC 32.3 (32.0-36.0) g/dL RDW 14.3 (12.0-15.0) % Plt Count 83 L (130-450) 10^3/uL MPV 12.1 H (7.4-11.4) fL Neut # (Auto) 6.0 (1.5-6.6) 10^3/uL Lymph # (Auto) 1.2 L (1.5-3.5) 10^3/uL [place] # (Auto) 0.4 (0.0-1.0) 10^3/uL Eos # (Auto) 0.4 (0.0-0.7) 10^3/uL Baso # (Auto) 0.0 (0.0-0.1) 10^3/uL Absolute Nucleated RBC 0.00 x10^3/uL Nucleated RBC % 0.0 /100WBC Sodium 139 (135-145) mmol/L Potassium 3.5 (3.5-5.0) mmol/L Chloride 103 (101-111) mmol/L Carbon Dioxide 30 (21-32) mmol/L Anion Gap 6.0 (6-13) BUN 20 (6-20) mg/dL Creatinine 1.0 (0.6-1.2) mg/dL Estimated GFR (MDRD) 72 L (>89) Glucose 110 H (70-100) mg/dL Calcium 8.3 L (8.5-10.3) mg/dL Sepsis Event Note (H) - Evaluation Current Stage of Sepsis: Resolved Possible source of Sepsis: positive: Skin/soft tissue - Sepsis Criteria Sepsis Criteria: Recorded Temperature greater than 38.3C or Less than 36C, Recorded Heart Rate greater than 90 bpm, Recorded Respiratory Rate greater than 20, Respiratory: Increasing oxygen requirements, SUPERINTENDENT POLICE: altered consciousness (unr elated to primary neuro pathology), Hematologic: platelets < 100,000; INR > 1.5, or a PTT>60 seconds Assessment/Plan - Problem List (1) Severe sepsis Impression: This is now resolved. He has been afebrile for more than 48 hours. His white blood cell count is normal with no bands. His CRP is trending down and his ron lulitis is significantly improved. Blood cultures have been negative to date. We will send him to oral antibiotics today with amoxicillin and doxycycline. Plan to discharge home tomorrow. (2) Acute respiratory failure with hypoxia Impression: This is resolved. This was secondary to the sepsis and possibly component of pulmonary edema. He has been resume his home oral diuretics and he is on room air. (3) Cellulitis of right lower extremity Impression: This was the cause of his sepsis. The erythema has significantly improved and his white blood cell count is decreased today. He no longer has bands present and he has been afebrile. His CRP is also trending down. We will switch to oral doxycycline and amoxicillin today. As long as he continues to improve throughout the day then he can be discharged home tomorrow to complete a total of 2 weeks of therapy. Last day of treatment would be November 11. (4) Atrial fibrillation with RVR Impression: This was secondary to the sepsis and has resolved. He remains rate controlled and is back on his home metoprolol. He has a watchman device in plac (5) Thrombocytopenia Impression: This continues to improve and is now in the 80s. This may be due to sepsis or the use of ibrutinib. Continue with daily CBC. (6) Leukemia Impression: He has a history of CLL and is on ibrutinib. We are holding this given the active infection. (7) Type 2 diabetes mellitus Impression: His A1c was 8% and we discussed therapy on discharge. We agreed to continue his metformin and he will follow-up with his primary care physician for follow-up. We discussed diet control is important as he has been drinking a lot of juice, eating cookies and soda monitor sugar. We discussed the importance of a carb controlled diet. I offered a nutrition consult but he declined as he states that he already knows what he should and should not be eating it is just that he has not been following it. (8) BPH (benign prostatic hyperplasia) Impression: He failed a voiding trial and so Saucedo catheter was placed once again. We will continue his home Flomax and finasteride. He will be discharged with a Saucedo catheter and will need outpatient follow-up with urology. (9) Encephalopathy Impression: This was secondary to sepsis and is now resolved.
[2021-11-01] MEDS: INSULIN ASPART 300 UNIT/3 ML PEN SUBQ SCH ×4 (07:50→21:16)
[2021-11-01] MEDS: METOPROLOL SUCCINATE 25 MG TABLET PO SCH (08:44)
[2021-11-01] MEDS: FINASTERIDE 5 MG TABLET PO SCH (08:45)
[2021-11-01] MEDS: TAMSULOSIN 0.4 MG CAPSULE PO SCH (08:45)
[2021-11-01] MEDS: DOXYCYCLINE 100 MG TABLET PO SCH ×2 (08:45→21:17)
[2021-11-01] MEDS: ASPIRIN EC 81 MG TABLET PO SCH (08:45)
[2021-11-01] MEDS: AMOXICILLIN 250 MG CAPSULE PO SCH ×3 (08:48→21:17)
[2021-11-01] MEDS: INSULIN GLARGINE 300 UNIT/3 ML PEN SUBQ SCH (21:17)
[2021-11-01] MEDS: ATORVASTATIN 40 MG TABLET PO SCH (21:17)
[2021-11-02] MEDS: SODIUM CHLORIDE FLUSH 0.9% 10 ML SYRINGE IVP SCH ×3 (00:15→17:30)
[2021-11-02] MEDS: AMOXICILLIN 250 MG CAPSULE PO SCH ×2 (05:45→13:31)
[2021-11-02] MEDS: FUROSEMIDE 40 MG TABLET PO SCH ×2 (05:46→13:31)
[2021-11-02] MEDS: ACYCLOVIR 200 MG CAPSULE PO SCH ×2 (05:47→13:31)
[2021-11-02 05:49] LABS: BASOPHILS % (AUTO) 0.3 %; EOSINOPHILS # (AUTO) 0.3 10^3/uL (0.0-0.7); EOSINOPHILS % (AUTO) 3.8 %; HCT - HEMATOCRIT 36.8 % (42.0-52.0); HGB - HEMOGLOBIN 12.1 g/dL (14.0-18.0); LYMPHOCYTES # (AUTO) 1.2 10^3/uL (1.5-3.5); LYMPHOCYTES % (AUTO) 18.4 %; MEAN CORPUSCULAR HEMOGLOBIN 29.1 pg (27.0-31.0); MEAN CORPUSCULAR HGB CONC 32.9 g/dL (32.0-36.0); MEAN CORPUSCULAR VOLUME 88.5 fL (80.0-94.0); MEAN PLATELET VOLUME 11.8 fL (7.4-11.4); MONOCYTES # (AUTO) 0.5 10^3/uL (0.0-1.0); MONOCYTES % (AUTO) 6.9 %; NEUTROPHILS # (AUTO) 4.6 10^3/uL (1.5-6.6); PLT - PLATELET COUNT 95 10^3/uL (130-450); RED BLOOD COUNT 4.16 10^6/uL (4.70-6.10); RED CELL DISTRIBUTION WIDTH 14.2 % (12.0-15.0); WHITE BLOOD COUNT 6.6 x10^3/uL (4.8-10.8)
[2021-11-02 06:20] LABS: CALCIUM 8.4 mg/dL (8.5-10.3); CREATININE 0.7 mg/dL (0.6-1.2); CRP - C-REACTIVE PROTEIN 8.8 mg/dL (0-1.0); POTASSIUM 3.5 mmol/L (3.5-5.0)
[2021-11-02] MEDS: INSULIN ASPART 300 UNIT/3 ML PEN SUBQ SCH ×3 (07:36→17:30)
[2021-11-02] MEDS: TAMSULOSIN 0.4 MG CAPSULE PO SCH (08:19)
[2021-11-02] MEDS: DOXYCYCLINE 100 MG TABLET PO SCH (08:19)
[2021-11-02] MEDS: ASPIRIN EC 81 MG TABLET PO SCH (08:19)
[2021-11-02] MEDS: FINASTERIDE 5 MG TABLET PO SCH (08:19)
[2021-11-02] MEDS: METOPROLOL SUCCINATE 25 MG TABLET PO SCH (08:19)
[2021-11-02 15:31] VITALS: BP 113/65
--- NOTE | 2021-11-02 17:06 | Discharge Plan ---
Discharge Plan Problem Reviewed?: Yes Disposition: Home, Self Care Condition: Fair Prescriptions: Amoxicillin [Amoxil] 500 mg PO TID #27 cap Saccharomyces Boulardii [Florastor] 250 mg PO BIDWM #18 cap Doxycycline [Vibramycin] 100 mg PO BID #18 tablet Diet: Low Sodium (and Diabetic diet) Activity Restrictions: Activity as Tolerated Shower Restrictions: No Driving Restrictions: No Instruction Topics: Heart Failure Evaluate, Heart Failure Warning Signs Health Concerns: You were hospitalized because you had sepsis, which is a widespread very serious infection. The source of the infection was cellulitis of your leg, which is an infection of your skin and soft tissues. You also had fluid buildup in your lungs and body, which is called congestive heart failure. The Echocardiogram done today revealed that the reason for fluid build up is that you have a "stiff heart", but it is not weak. You were already on Lasix before coming here, therefore you must have had some type of congestive heart failure, known to your journeyman wireman, before this. Your oxygen level drops to unsafe levels when you are active. You therefore are now ordered to have supplemental oxygen at home, which you should use during any activity set at 2 L/min via nasal cannula. You do not need to use the supplemental oxygen during rest or sleep. Keep using your CPAP at night during sleep though. You are being discharged home to take several more days of 2 antibiotics to treat the serious infection (plus a probiotic to prevent diarrhea). The new prescriptions were electronically sent to your [facility] pharmacy in [place]. You also have significant urinary retention now, that needs to be relieved by having a Saucedo in place. You are going home with a new Saucedo catheter. Please see your PCP or come to a walk-in clinic for further Saucedo management and Urology attention. Please resume all your other pre-hospital medications. Remember that you need to be on a stricter diabetic, lower sugar and lower carbohydrate diet! Please see your Primary Care Provider and your Machine Heel Seat Laster in the next 1 to 4 weeks for a hospital follow-up visit. Plan of Treatment: As above. Care Goals: Improvement in symptoms and stabilization are the goals. Assessment: The patient and daughter at bedside understand and are agreeable with the plan. Additional Instructions or Follow Up instructions: If you have new or worsening symptoms, call your PCP or your Machine Heel Seat Laster for advice, or come to the emergency department. No Smoking: If you smoke, Please STOP! Call for help. Follow-up with: DENG REYNOSO MD [Primary Care Provider] -
--- NOTE | 2021-11-02 17:20 | DISCHARGE SUMMARY ---
Discharge Summary Admit Date: 10/28/21 Discharge Date: 11/02/21 Discharging Provider: Dr Cynthia Drummond Primary Care Provider: Dr Vickie Figueroa Code Status: Attempt Resuscitation Condition at Discharge: Fair Discharge Disposition: 01 Home, Self Care - HPI History of Present Illness: From the admission H&P of Dr Nicolás Myersf: This is a 76-year-old male with a past medical history significant for recurrent right lower extremity cellulitis, atrial fibrillation with watchman device in place, leukemia on ibrutinib, history of brain hemorrhage who presents today due to confusion and right lower extremity erythema. The history is obtained from the patient's family as he is encephalopathic and a poor historian. His daughter states that he started become a bit more delirious over the past couple days but this really progressed this morning and that is why they called EMS. He did see a walk-in clinic yesterday for right lower extremity cellulitis but he did not start the Bactrim until this morning. She states he always has recurrent right lower extremity cellulitis and has been admitted multiple times in the past for similar problems. She stated a little diarrhea yesterday but he did not have any abdominal pain or other symptoms. He was complaining of right leg pain over the past couple days which made him suspect he was developing cellulitis. She states he does have chronic lower extremity edema and is on a diuretic. He does not have a history of heart failure to her knowledge. He is on ibrutinib for leukemia and does have a history of atrial fibrillation. He is not on anticoagulation because he has a Watchman device in place. He gets all of his care [facility] which is where his primary care physician and oncologist are. In the emergency department, he was noted to be febrile, tachycardic, tachypneic and hypoxic requiring 4 L of oxygen via nasal cannula. Labs revealed leukopenia and thrombocytopenia. Chest x-ray suggest pulmonary edema. He was given vancomycin and cefazolin in the emergency department. The Hospitalist team was then contacted for admission. I discussed goals of care with the patient's daughters given he is altered and unable to make his own decisions. They feel that he would want to be a Full C ode. - HOSPITAL COURSE Hospital Course: (1) Severe sepsis He was started on iv fluids and empiric iv antibiotics of Ceftriaxone and V ancomycin. His white blood cell count and CRP normalized and his cellulitis significantly improved. Blood cultures were negative to date. He was eventually discharged to home with prescriptions for amoxicillin and doxycycline to take for 9 more days (a 14 day course). (2) Cellulitis of right lower extremity This was the cause of his sepsis. The erythema significantly improved and his white blood count and CRP went down. A Doppler of the R leg was neg for DVT. We switched empiric iv Ceftriaxone and iv Vanco to oral doxycycline and amoxicillin. He was discharged the next day to complete a total of 2 weeks of therapy. Last day of treatment would be November 11. (3) Acute respiratory failure with hypoxia This resolve and was felt to be secondary to sepsis and possibly a component of pulmonary edema. We resumed his home oral diuretics and he was stable on room air. (4) Chronic diastolic heart failure An Echo was done, due to desaturations and pulmonary edema and the Echo confirmed a preserved LVEF of 55-60%. (5) Atrial fibrillation with RVR This was secondary to the sepsis and the RVR resolved. He remained rate controlled and is back on his home metoprolol. He has a watchman device in place, and is on no anticoagulant. (6) Encephalopathy This was secondary to sepsis and resolved. (7) Thrombocytopenia This improved from plt count of 45 at admission and at discharge plt count was 95. This was likely due to sepsis or the use of ibrutinib. (8) Leukemia He has a history of CLL and is on ibrutinib. We were holding that temporarily, given the active infection. (9) Type 2 diabetes mellitus His A1c was 8% and we discussed therapy on discharge. We agreed to continue his metformin and he will follow-up with his primary care physician for follow-up. We discussed the importance of a carb controlled diet, since he has been drinking a lot of juice and soda and eating cookies. He needs to monitor sugars. We offered a nutrition consult but he declined that and he stated that he already knows what he should and should not be eating, but was just not doing it. (10) BPH (benign prostatic hyperplasia) He had urinary retention and needed a Saucedo which was later removed. However, he then failed a voiding trial and so Saucedo catheter was placed once again. We are continuing his home Flomax and Finasteride. He is being discharged with a Saucedo catheter and will need outpatient follow-up with his PCP and Urology. - ALLERGIES Allergies/Adverse Reactions: Allergies Allergy/AdvReac Type Severity Reaction Status Date / Time No Known Drug Allergies Allergy Verified 05/25/21 10:07 - MEDICATIONS Home Medications: Ambulatory Orders Medication Instructions Recorded Confirmed Acyclovir 400 mg PO TID 01/10/18 10/29/21 Alfuzosin HCl [Alfuzosin HCl ER] 10 mg PO DAILY 01/10/18 10/29/21 Atorvastatin Calcium 40 mg PO HS 01/10/18 10/29/21 Finasteride 5 mg PO DAILY 01/10/18 10/29/21 Ketotifen Fumarate 5 ml EACHEYE BID 01/10/18 10/29/21 Aspirin EC [Ecotrin] 81 mg PO DAILY 10/29/21 10/29/21 Furosemide [Lasix] 40 mg PO BIDDIURETIC 10/29/21 10/29/21 Ibrutinib [Imbruvica] 3 cap PO QDAC 10/29/21 10/29/21 Metformin HCl [Glumetza] 500 mg PO DAILY 10/29/21 10/29/21 Metoprolol Succinate [Toprol Xl] 25 mg PO DAILY 10/29/21 10/29/21 Mupirocin 2% Oint [Bactroban 2% 1 applic TOP DAILY 10/29/21 10/29/21 Oint] Amoxicillin [Amoxil] 500 mg PO TID #27 cap 11/02/21 Doxycycline [Vibramycin] 100 mg PO BID #18 tablet 11/02/21 Saccharomyces Boulardii [Florastor] 250 mg PO BIDWM #18 cap 11/02/21 - PHYSICAL EXAM AT DISCHARGE General Appearance: positive: No acute distress, Alert Eyes Bilateral: positive: Normal inspection, EOMI ENT: positive: ENT inspection nml, No signs of dehydration Neck: positive: Nml inspection, No JVD Respiratory: positive: No respiratory distress, Breath sounds nml Cardiovascular: positive: Irregularly irregular Abdomen: positive: Non-tender, No distention Skin: positive: Warm, Dry Extremities: positive: Non-tender, Other (Trace erythema of R lower leg) Neurologic/Psychiatric: positive: Oriented x3 (Non-focal) - LABS Result Diagrams: 11/02/21 05:26 11/02/21 05:26 - DIAGNOSTIC IMAGING Diagnostic Imaging Results: Final report reviewed - SEPSIS Current Stage of Sepsis: Resolved Possible source of Sepsis: Skin/soft tissue Sepsis Criteria: Recorded Temperature greater than 38.3C or Less than 36C, Recorded Heart Rate greater than 90 bpm, Recorded Respiratory Rate greater than 20, Respiratory: Increasing oxygen requirements, DATABASE ADMINISTRATOR: altered consciousness (unrelated to primary neuro pathology), Hematologic: platelets < 100,000; INR > 1.5, or a PTT>60 seconds - FOLLOW UP Follow Up: See PCP in 1-2 weeks for hospital follow-up visit. - TIME SPENT Time Spent in Discharge (Minutes): 50
== END 2021-11-02 17:59 | disposition home or self-care (01) | DRG 871 ==
LOC: EDUNIT# → ED 15:43 → ICU 16:58 → MS2 10-30 20:08
PROVIDERS: ADMIT Internal Medicine; ATTEND Internal Medicine
DX: A41.9 Sepsis, unspecified organism (principal); J96.01 Acute respiratory failure with hypoxia; G93.41 Metabolic encephalopathy; L03.115 Cellulitis of right lower limb; Z95.811 Presence of heart assist device; I50.32 Chronic diastolic (congestive) heart failure; C91.10 Chronic lymphocytic leukemia of B-cell type not having achieved remission; R65.20 Severe sepsis without septic shock; I48.91 Unspecified atrial fibrillation; D69.6 Thrombocytopenia, unspecified; I11.0 Hypertensive heart disease with heart failure; E11.9 Type 2 diabetes mellitus without complications; N40.1 Benign prostatic hyperplasia with lower urinary tract symptoms; R33.8 Other retention of urine; Z20.822 Contact with and (suspected) exposure to COVID-19
CPT/HCPCS: 36415; 71045; 80048; 80053; 80076; 80202; 81001; 82330; 83036; 83605; 83735; 83880; 84100; 84145; 84443; 85025; 86140; 87040; 87150; 87633; 93005; 93306; 93971; 94761; 96365; 96375; 99285; 99291; A9270; J0690; J1815; J3370; 87086

== ENCOUNTER 2023-12-27 14:06 | Outpatient (CLI) | payer OTHER ==
[2023-12-27 20:13] LABS: BASOPHILS # (AUTO) 0.1 10^3/uL (0.0-0.1); BASOPHILS % (AUTO) 0.9 %; EOSINOPHILS # (AUTO) 0.2 10^3/uL (0.0-0.7); EOSINOPHILS % (AUTO) 2.6 %; HCT - HEMATOCRIT 46.7 % (42.0-52.0); HGB - HEMOGLOBIN 14.4 g/dL (14.0-18.0); LYMPHOCYTES # (AUTO) 1.5 10^3/uL (1.5-3.5); LYMPHOCYTES % (AUTO) 19.7 %; MEAN CORPUSCULAR HEMOGLOBIN 28.7 pg (27.0-31.0); MEAN CORPUSCULAR HGB CONC 30.8 g/dL (32.0-36.0); MEAN CORPUSCULAR VOLUME 93.2 fL (80.0-94.0); MONOCYTES # (AUTO) 0.6 10^3/uL (0.0-1.0); MONOCYTES % (AUTO) 8.2 %; NEUTROPHILS # (AUTO) 5.4 10^3/uL (1.5-6.6); NEUTROPHILS % (AUTO) 68.3 %; PLT - PLATELET COUNT 131 10^3/uL (130-450); RED BLOOD COUNT 5.01 10^6/uL (4.70-6.10); RED CELL DISTRIBUTION WIDTH 14.1 % (12.0-15.0); WHITE BLOOD COUNT 7.8 x10^3/uL (4.8-10.8)
== END 2023-12-27 14:07 | disposition home or self-care (01) ==
LOC: LAB.S 14:06
PROVIDERS: ATTEND Internal Medicine Hematology & Oncology
DX: C91.10 Chronic lymphocytic leukemia of B-cell type not having achieved remission (principal)
CPT/HCPCS: 36415; 85025